=== PATIENT | female | born 1945 | race Caucasian/White ===

== ENCOUNTER 2019-05-24 03:21 | Inpatient (IN) | payer OTHER ==
[~2019-05-24] VITALS: Ht 157.5 cm; Wt 73.0 kg
[2019-05-24] VITALS (23 sets, daily range): BP systolic 83–182
--- NOTE | 2019-05-24 03:23 | NUR ---
ER at bedside examining patient.
--- NOTE | 2019-05-24 03:23 | NUR ---
Placed in room 2 . Placed on equipment monitor phototypesetting, blood pressure machine and pulse oximeter. To gown for exam. Side rails up. Report given to Khoa BARR.
--- NOTE | 2019-05-24 03:38 | NUR ---
# 20 gauge angiocath placed to rt ac. Use of asceptic technique. Opsite placed over site. Blood return noted. Blood for lab drawn from site. Flushed with 10 cc of normal saline. No evidence of infiltration noted. Patient tolerated well.
--- NOTE | 2019-05-24 03:44 | NUR ---
Patient not known to be of DNR status. Patient medicated with 80 mg of ROCURONIUM for sedation prior to placement of ET tube. Respiratory therapy at bedside prior to placement. Size 7.5 ET tube placed by DR MCGRATH. Cuff inflated with 10 cc air. Auscultation of breath sounds over bilateral chest wall. ET tube secured with MIGUEL ANCHOR FAST. O2 sats 99% pulse ox. PCXR ordered to check tube placement.
--- NOTE | 2019-05-24 03:45 | NUR ---
Insertion of OG tube 16 fr, well tolerated. Not connected to suction, Dr. Hussein aware
[2019-05-24] MEDS ORDERED: NACL 0.9% 1,000 ML IV ONE (03:56)
[2019-05-24] MEDS ORDERED: FUROSEMIDE 40 MG/4 ML VIAL IVP ONE (04:00)
[2019-05-24] MEDS ORDERED: NITROGLYCERIN 1 INCH (GM) OINT. TP ONE (04:00)
--- NOTE | 2019-05-24 04:00 | NUR ---
Pt BIBA (ACLS) to ED C/O Respiratory Distress, initial O2 sat at 70 - 80% on 100% non-rebreather mask. Dr. Hussein bedside for immediate Intubation. A/O x 0, pupil slug to react to light. 20 G IV access established R AC. Preparing for OG and Jacques cath insertion. Portable X Ray bedside standing by. RT paged to bedside with vent
[2019-05-24] MEDS ORDERED: ALEN10TA7 PO (04:04)
[2019-05-24] MEDS ORDERED: GLU850 PO (04:04)
[2019-05-24] MEDS ORDERED: GLIP-201 PO (04:04)
[2019-05-24] MEDS ORDERED: MIDO5TAB PO (04:04)
[2019-05-24] MEDS ORDERED: LACTOBACILLUS PO (04:04)
[2019-05-24] MEDS ORDERED: FURO-149 PO (04:04)
[2019-05-24] MEDS ORDERED: GABA-531 PO (04:04)
[2019-05-24] MEDS ORDERED: OMEP20CA11 PO (04:04)
[2019-05-24] MEDS ORDERED: LOVI30 SQ (04:04)
[2019-05-24] MEDS ORDERED: CARV3.1246 PO (04:04)
[2019-05-24] MEDS ORDERED: HYDR-3917 PO (04:04)
[2019-05-24] MEDS ORDERED: LIP20 PO (04:04)
[2019-05-24] MEDS ORDERED: CYM30 PO (04:04)
[2019-05-24] MEDS ORDERED: CIPR-261 PO (04:04)
--- NOTE | 2019-05-24 04:10 | NUR ---
# 16 FR Guardado catheter with use of sterile technique. Immediate return of yellow, cloudy cc 10 ml urine noted. Bedside drainage bag placed below level of bladder. Urine sample collected and sent to lab. Pt tolerated procedure well. Patient arrived with guardado in place, changed due to standard of practice prior to admission. Patient unable to toilet self.
--- NOTE | 2019-05-24 04:13 | NUR ---
Medication reconciliation completed with information provided by NICKY. Any prior medication reconciliation on file was reviewed and corrected.
[2019-05-24] MEDS ORDERED: ROCURONIUM BROMIDE 10 MG/ML (ZEMURON) IV ONE ×2 (04:15→07:53)
[2019-05-24 04:22] LABS: BILIRUBIN,URINE NEGATIVE (NEGATIVE); BLOOD, URINE 1+ (NEGATIVE); CLARITY/URINE CLOUDY (CLEAR); COLOR,URINE YELLOW (YELLOW); GLUCOSE,URINE TRACE (NEGATIVE); KETONES,URINE NEGATIVE (NEGATIVE); LEUKOCYTE ESTERASE ,URINE NEGATIVE (NEGATIVE); NITRITE, URINE NEGATIVE (NEGATIVE); PROTEIN URINE 3+ (NEGATIVE); UROBILINOGEN,URINE 0.2 (0.2-1.0)
[2019-05-24 04:26] LABS: MEAN CORPUSCULAR HEMOGLOBIN 28 pg (27-31); MEAN CORPUSCULAR HGB CONC 31 % (32-36); MEAN CORPUSCULAR VOLUME 89 fL (79.0-98.0); PLATELET COUNT (AUTO) 421 K/uL (130-430); RED BLOOD CELL COUNT(AUTO) 3.61 MIL/uL (4.2-6.2); RED CELL DISTRIBUTION WIDTH 16.7 % (9.0-15.0)
[2019-05-24 04:27] LABS: BACTERIA,URINE MODERATE /HPF (None Seen); WBC,URINE 0-3 /HPF (0-3)
[2019-05-24] MEDS ORDERED: LORazepam 2 MG/ML VIAL IVP ONE (04:30)
[2019-05-24 04:38] LABS: ANION GAP 9 (5-15); CALCIUM 7.6 mg/dL (8.4-11.0); CHLORIDE 107 mmol/L (98-107); GLUCOSE 325 mg/dL (70-99); POTASSIUM 4.6 mmol/L (3.5-5.1); SODIUM SERUM 141 mmol/L (136-145); UREA NITROGEN, BLOOD 28 mg/dL (8-21)
--- NOTE | 2019-05-24 04:39 | NUR ---
RT bedside for ABG draw, well tolerated
[2019-05-24 04:42] LABS: INR 0.9 (0.8-1.2); PROTHROMBIN TIME 9.2 SECS (9.5-12.5)
[2019-05-24 04:44] LABS: ALANINE AMINOTRANSFERASE 29 U/L (12-78); ALBUMIN 2.5 g/dL (3.4-4.8); ASPARTATE AMINOTRANSFERASE 40 U/L (10-37); TOTAL BILIRUBIN 0.3 mg/dL (0.0-1.0)
[2019-05-24 04:45] LABS: ATYPICAL LYMPHOCYTES % 0 % (0-0); BAND % (MANUAL) 0 % (0-6); BASOPHILS % (MANUAL) 1 % (0-2); EOSINOPHILS % (MANUAL) 1 % (0-7); LYMPHOCYTES % (MANUAL) 23 % (20-46); MONOCYTES % (MANUAL) 10 % (0-11)
--- NOTE | 2019-05-24 05:01 | NUR ---
VS: 114/67, 97, 99% on AC 60% Fio2, 18, 450, peep 5, ETT 7.5, 23cm LL
--- NOTE | 2019-05-24 05:04 | NUR ---
Pt afebrile T Max: 98.1
--- NOTE | 2019-05-24 05:08 | NUR ---
Nitro paste DC'd d/t continuing SBP trending down. Dr. Hussein aware
[2019-05-24] MEDS ORDERED: METOCLOPRAMIDE HCL 10 MG/2 ML VIAL IVP PRN (05:30)
--- NOTE | 2019-05-24 05:46 | NUR ---
RT arrived at bedside ready for transfer to ICU 7
--- NOTE | 2019-05-24 06:00 | NUR ---
Patient will be admitted to care of Dr. Hanna. Admitted to ICU unit. Will go to room ICU 7. Belongings list completed. Complete and up to date summary report printed. SBAR report to be given at bedside with opportunity for questions.
--- NOTE | 2019-05-24 06:00 | NUR ---
Transfer to ICU via ACLS protocol. Licensed nurse present. IV present no signs or symptoms of infiltration.
--- NOTE | 2019-05-24 06:00 | NUR ---
ADMISSION NOTE ADMISSION NOTE Received patient from ER via [facility]. Patient admitted with diagnosis of RESPIRATORY FAILURE. VSS, NO S/S OF ACUTE DISTRESS NOTED. PT RECEIVED IN BED WITH EYES CLOSED, UNRESPONSIVE. PT INTUBATED, VENT SETTIGNS: AC 18, TV 450, FIO2 60%, PEEP 5. RAC 20G INFUSING NS @ 100 CC/HR. OGT IN PLACE CLAMPED. KENYON CATH IN PLACE DRAINING YELLOW URINE TO GRAVITY. L HIP INCISION NOTED, DRESSING CDI. BAY PUMP IN PLACE. HOB ELEVATED, BED IN LOWEST POSITION, CALL LIGHT IN REACH. WILL CONTINUE TO MONITOR PT.
--- NOTE | 2019-05-24 06:38 | NUR ---
DR. MIL GASTON PAGED FOR STAT CONSULT AT THIS TIME. PER EXCHANGE DR. ONTIVEROS IS STILL FURNACE COMBINATION ANALYST. WILL AWAIT MD CALL BACK. SPOKE WITH DALTON AT THE EXCHANGE.
--- NOTE | 2019-05-24 06:50 | NUR ---
DR. PETER GASTON AT BEDSIDE TO EVALUATE PT.
[2019-05-24] MEDS ORDERED: ACETAMINOPHEN 325 MG TABLET PO PRN (07:00)
[2019-05-24] MEDS ORDERED: ALBUTEROL SULFATE 0.083% 2.5 MG/3 ML VIAL.NEB INH PRN ×2 (07:00→16:15)
--- NOTE | 2019-05-24 07:00 | NUR ---
Shift report received from night RN using SBAR
[2019-05-24] MEDS ORDERED: DEXTROSE 50%-WATER 50 ML DISP.SYRIN IVP PRN (07:15)
[2019-05-24] MEDS ORDERED: D5W 1,000 ML IV PRN (07:15)
[2019-05-24] MEDS ORDERED: GLUCOSE 15 GM GEL (in 37.5 GM TUBE) PO PRN (07:15)
--- NOTE | 2019-05-24 07:28 | NUR ---
ENDORSEMENT BEDSIDE REPORT GIVEN TO YOUNG RN USING SBAR APPROACH.
--- NOTE | 2019-05-24 08:03 | NUR ---
Restraints place due to patient pulling on NG tube and Ventilator. Will call for orders.
--- NOTE | 2019-05-24 08:15 | NUR ---
Echocardiogram tech bedside.
[2019-05-24 08:23] LABS: BASOPHILS # (AUTO) 0.1 K/uL (0.0-0.2); BASOPHILS % (AUTO) 0.7 % (0.0-2.0); EOSINOPHILS % (AUTO) 0.1 % (0.0-4.0); HEMATOCRIT 29.1 % (36-48); HEMOGLOBIN 9.3 g/dL (12.0-16.0); LYMPHOCYTES # (AUTO) 0.8 K/uL (1.0-5.5); LYMPHOCYTES % (AUTO) 4.9 % (20.5-51.5); MEAN CORPUSCULAR HEMOGLOBIN 28 pg (27-31); MEAN CORPUSCULAR HGB CONC 32 % (32-36); MEAN CORPUSCULAR VOLUME 88 fL (79.0-98.0); MONOCYTES # (AUTO) 1.3 K/uL (0.0-1.0); MONOCYTES % (AUTO) 8.2 % (1.7-9.3); NEUTROPHILS # (AUTO) 13.5 K/uL (1.8-7.7); NEUTROPHILS % (AUTO) 86.1 % (40.0-70.0); PLATELET COUNT (AUTO) 322 K/uL (130-430); RED BLOOD CELL COUNT(AUTO) 3.31 MIL/uL (4.2-6.2); RED CELL DISTRIBUTION WIDTH 16.5 % (9.0-15.0); WHITE BLOOD COUNT (AUTO) 15.7 K/uL (4.8-10.8)
--- NOTE | 2019-05-24 08:30 | NUR ---
Oral Care provided.
--- NOTE | 2019-05-24 08:35 | NUR ---
Radiology bedside for L. hip X-Ray
[2019-05-24 08:42] LABS: INR 0.9 (0.8-1.2); PROTHROMBIN TIME 9.2 SECS (9.5-12.5)
[2019-05-24 08:46] LABS: ALANINE AMINOTRANSFERASE 31 U/L (12-78); ALBUMIN 2.4 g/dL (3.4-4.8); ANION GAP 9 (5-15); ASPARTATE AMINOTRANSFERASE 41 U/L (10-37); CALCIUM 7.7 mg/dL (8.4-11.0); CHLORIDE 107 mmol/L (98-107); CREATININE 1.11 mg/dL (0.55-1.30); GLUCOSE 263 mg/dL (70-99); POTASSIUM 4.6 mmol/L (3.5-5.1); SODIUM SERUM 141 mmol/L (136-145); TOTAL BILIRUBIN 0.3 mg/dL (0.0-1.0); UREA NITROGEN, BLOOD 31 mg/dL (8-21)
--- NOTE | 2019-05-24 08:49 | NUR ---
Critical Value of Troponin 2.872. Informed Dr. Frausto who was bedside. No new orders.
--- NOTE | 2019-05-24 08:55 | NUR ---
MD ROUNDS Dr Hanna bedside. Informed of wrist restraints. Orders received.
[2019-05-24] MEDS ORDERED: ENOXAPARIN SODIUM 30 MG/0.3 ML SYRINGE SQ SCH (09:00)
--- NOTE | 2019-05-24 09:00 | NUR ---
AM ASSESSMENT PT on vent settings AC 19, TV 450, FiO2 60%, PEEP 5. OG-tube in placement, auscultated positive in gastric area and clamped. NS running @ 100 cc/hr changed to 75cc/hr per MD order. Pt on low loss air mattress. No signs of edema. Past posterior scar midline upper back and sacrum area but intact with no redness or signs of irritation. Left hip dressing in place with BAY pump and air tight dressing intact. Noted two draining areas of blood measuring 2 x 2cm in dressing. Bed locked and in lowest position with call light in place.
--- NOTE | 2019-05-24 09:29 | NUR ---
Nutrition Update Jameson Scale 10 noted. Pt admitted for respiratory failure. Diet: NPO BMI: 27.5 kg/m2 RD to follow per nutrition care standards.
[2019-05-24] MEDS: LEVOFLOXACIN 500 MG/D5W 100 ML IV SCH (09:49)
[2019-05-24] MEDS: CARVEDILOL 3.125 MG TABLET (COREG) PO SCH ×2 (09:49→21:04)
[2019-05-24] MEDS: INSULIN LISPRO SLIDING SCALE 100 UNITS/ML VIAL (humaLOG) SUBCUT PRN ×2 (11:14→23:00)
--- NOTE | 2019-05-24 11:21 | NUR ---
PICC LINE Nurse Bedside
--- NOTE | 2019-05-24 12:30 | NUR ---
Sister Nasima kelton. Informed of past medical history
--- NOTE | 2019-05-24 13:00 | NUR ---
Pt able to communicate with pen and paper. Pt restraints removed while family is bedside and reapplied after. Pt is aware and indicated she is okay with restraints for care.
--- NOTE | 2019-05-24 14:26 | NUR ---
Paged Dr. Hanna for orders, spoke with exchange.
[2019-05-24] MEDS ORDERED: LORazepam 2 MG/ML VIAL IVP PRN (14:30)
--- NOTE | 2019-05-24 15:00 | NUR ---
Dr Hanna called back. Informed him that Duong (Wound nurse) would like to see the incision site but Dr Hanna stated not to open the BAY dressing.
--- NOTE | 2019-05-24 15:09 | NUR ---
Wound Evaluation: Wound Consult ordered for Low Jameson Score. Patient evaluated for a low Jameson score of 10. Patient was awake, alert, oriented, non-verbal (mouths words) and [facility] with [facility] IsoFlex ANALY mattress with low air loss therapy initiated. Patient needs assist to turn in bed. Recommend reposition patient side to side only every 2 hours with pillow wedge pelvic tilt. Elevate, off-load and float bilateral heels with one pillow lengthwise under each extremity at all times. Offload pressure areas with pillows for pressure re-distribution. Perform skin care and monitor skin integrity Q shift. Use moisture barrier cream on moisture susceptible areas QID and PRN for soiling. Maintain patient on a low air-loss mattress. Skin assessment: 1. Left lateral hip: Recent surgical site (per sisters of patient), present on admission. Site has a Jennifer 7 wound VAC for incision closure. Recommend: Leave Jennifer wound VAC in place per orders by Dr. Hanna. May remove wound VAC and consult wound resident caregiver: Wound VAC batteries (or 7 days, whichever comes first). Do not place patient on hip at any time. 2. Left upper extremity: Multiple areas of ecchymosis, present on admission. 3. Right upper extremity: Multiple areas of ecchymosis, present on admission. Recommend: No dressings needed. Continue to monitor sites every shift.
--- NOTE | 2019-05-24 15:30 | NUR ---
Tran called from [facility] for status update.
[2019-05-24] MEDS: MORPHINE 2 MG/ML INJ. SYRINGE IVP PRN ×3 (15:49→22:39)
[2019-05-24] MEDS ORDERED: IPRATROPIUM BROM 0.5 MG/2.5 ML VIAL.NEB (ATROVENT) INH PRN (16:15)
[2019-05-24] MEDS ORDERED: ENOXAPARIN SODIUM 40 MG/0.4 ML SYRINGE SUBCUT ONE (16:15)
--- NOTE | 2019-05-24 16:30 | NUR ---
Called [facility] to see when the last dose of medication was given for metformin per Dasha. Was informed the pt did not receive any medication while in their care. Called [facility] to and left message for warehouse checker to see when the patient received metformin last per contraindication for CT with contrast. Waiting for callback. Consent signed for CT w/contrast. Informed Radha @ radiology.
[2019-05-24] MEDS ORDERED: IOHEXOL 350 mgI/mL, 150 ML INFUS..BTL IV ONE (16:36)
--- NOTE | 2019-05-24 16:48 | NUR ---
1614 TITRATED FIO2 TO 40%. PT TOLERATING. SAT 100%. Addendum: 05/24/19 at 1649 by Nuha Galarza RT Amended: Links added.
--- NOTE | 2019-05-24 17:40 | NUR ---
One time order of Lovenox order received for 40mg but pt had prior dose of 30mg @ 0950. Called Bong at pharmacy and he stated it was okay to give.
[2019-05-24] MEDS: NACL 0.9% 1,000 ML IV SCH (17:42)
--- NOTE | 2019-05-24 18:00 | NUR ---
Pt complaining of being hot. Removed all covers except one sheet. Temp of 98.6F noted.
[2019-05-24] MEDS: methylPREDNISolone SOD SUCC/PF 62.5 MG/ML VIAL IVP SCH (18:21)
--- NOTE | 2019-05-24 19:19 | NUR ---
Endorsement to Sotero BARR given using SBAR. PT resting and watching tv. No signs of distress A/O x 3. Bedlocked and in lowest position with call light in place. Sotero BARR bedside.
--- NOTE | 2019-05-24 20:00 | NUR ---
AWAKE, ALERT, DISORIENTED TO TIME AND PLACE. REORIENTED. ORALLY INTUBATED. SUCTIONED ETT WITH SCANT AMOUNT OF THIN CLEAR MUCUS OBTAINED. ORAL CARE GIVEN. OGT CLAMPED. SACHI SOFT WRIST RESTRAINTS ON FOR SAFETY. COMMUNICATES BY WRITING . KENYON CATH PATENT DRAINING CLEAR YELLOW URINE TO GRAVITY. SR. LEFT HIP DRSG D/I, BAY PUMP IN PLACE.
[2019-05-24] MEDS: ALBUTEROL SULFATE 0.083% 2.5 MG/3 ML VIAL.NEB INH SCH (20:01)
[2019-05-24] MEDS: IPRATROPIUM BROM 0.5 MG/2.5 ML VIAL.NEB (ATROVENT) INH SCH (20:01)
--- NOTE | 2019-05-24 20:30 | NUR ---
SISTERS VISITING. RESTRAINTS OFF AT THIS TIME. ABLE TO COMMUNICATE BY WRITING.
--- NOTE | 2019-05-24 21:00 | NUR ---
MORPHINE 2 MG IVP GIVEN PER PT REQUEST FOR C/O RIGHT SHOULDER PAIN.
--- NOTE | 2019-05-24 21:30 | NUR ---
PER WOUND TREATMENT ORDERS, PT IS NOT TO BE TURNED ON LEFT HIP AT ANYTIME, SO TURNING Q2 HRS IS RIGHT SIDE AND SUPINE ONLY.
--- NOTE | 2019-05-24 22:00 | NUR ---
PT ALERT, MADE PACT NOT TO PULL ON ANYTHING. SEEMS TO COMPREHEND. RESTRAINTS NOT REAPPLIED. DISCONTINUED EARLIER AT 2029.
--- NOTE | 2019-05-24 22:40 | NUR ---
MORPHINE 2 MG IVP GIVEN FOR C/O GENERAL DISCOMFORT, RIGHT SHOULDER PAIN, LEFT HIP PAIN , AND THROAT PAIN.
--- NOTE | 2019-05-24 23:00 | NUR ---
ACCU-CHEK 155, 2 UNITS NOVOLOG INSULIN SQ GIVEN PER SLIDING SCALE COV.
[2019-05-25] VITALS (37 sets, daily range): BP systolic 100–179
--- NOTE | 2019-05-25 | NUR ---
SISTER LEFT FOR HOME EARLIER. PT ASLEEP. SUCTIONED, TURNED. MORPHINE 2 MG IVP GIVEN FOR GEN DISCOMFORT.
[2019-05-25] MEDS: MORPHINE 2 MG/ML INJ. SYRINGE IVP PRN ×6 (00:07→12:50)
[2019-05-25] MEDS: IPRATROPIUM BROM 0.5 MG/2.5 ML VIAL.NEB (ATROVENT) INH SCH ×4 (01:01→20:11)
[2019-05-25] MEDS: ALBUTEROL SULFATE 0.083% 2.5 MG/3 ML VIAL.NEB INH SCH ×4 (01:01→20:16)
--- NOTE | 2019-05-25 03:00 | NUR ---
ACCU-CHEK 148, NO INSULIN DUE PER SLIDING SCALE COV.
[2019-05-25] MEDS: INSULIN LISPRO SLIDING SCALE 100 UNITS/ML VIAL (humaLOG) SUBCUT PRN ×5 (03:16→21:52)
[2019-05-25 05:34] LABS: BASOPHILS % (AUTO) 0.3 % (0.0-2.0); HEMATOCRIT 23.4 % (36-48); HEMOGLOBIN 7.7 g/dL (12.0-16.0); LYMPHOCYTES % (AUTO) 11.5 % (20.5-51.5); MEAN CORPUSCULAR HEMOGLOBIN 29 pg (27-31); MEAN CORPUSCULAR HGB CONC 33 % (32-36); MEAN CORPUSCULAR VOLUME 87 fL (79.0-98.0); MONOCYTES # (AUTO) 0.5 K/uL (0.0-1.0); MONOCYTES % (AUTO) 6.1 % (1.7-9.3); NEUTROPHILS # (AUTO) 6.9 K/uL (1.8-7.7); NEUTROPHILS % (AUTO) 82.1 % (40.0-70.0); PLATELET COUNT (AUTO) 232 K/uL (130-430); RED BLOOD CELL COUNT(AUTO) 2.68 MIL/uL (4.2-6.2); RED CELL DISTRIBUTION WIDTH 16.3 % (9.0-15.0); WHITE BLOOD COUNT (AUTO) 8.5 K/uL (4.8-10.8)
[2019-05-25] MEDS: NACL 0.9% 1,000 ML IV SCH ×2 (05:51→21:55)
--- NOTE | 2019-05-25 06:00 | NUR ---
SLEPT FOR LONG PERIODS OF TIME. MORPHINE 2 MG GIVEN FOR C/O GENERAL DISCOMFORT. UO GOOD. ORAL CAR GIVEN. TURNED Q2 HRS. REMAINS IN GUARDED CONDITION.
[2019-05-25 06:03] LABS: ALANINE AMINOTRANSFERASE 22 U/L (12-78); ANION GAP 10 (5-15); ASPARTATE AMINOTRANSFERASE 21 U/L (10-37); CALCIUM 7.4 mg/dL (8.4-11.0); CHLORIDE 110 mmol/L (98-107); CREATININE 0.85 mg/dL (0.55-1.30); GLUCOSE 153 mg/dL (70-99); POTASSIUM 4.8 mmol/L (3.5-5.1); SODIUM SERUM 143 mmol/L (136-145); THYROID STIMULATING HORMONE 0.96 uIu/mL (0.36-3.74); TOTAL BILIRUBIN 0.4 mg/dL (0.0-1.0); UREA NITROGEN, BLOOD 28 mg/dL (8-21)
[2019-05-25] MEDS: methylPREDNISolone SOD SUCC/PF 62.5 MG/ML VIAL IVP SCH ×2 (06:35→21:40)
--- NOTE | 2019-05-25 07:05 | NUR ---
Shift report from night RN using SBAR.
[2019-05-25 07:18] LABS: CHOLESTEROL 95 mg/dL (<200); HDL CHOLESTEROL 45 mg/dL (>55); LDL CHOLESTEROL 36 mg/dL (<100); TRIGLYCERIDES 66 mg/dL (30-150)
[2019-05-25] MEDS: LEVOFLOXACIN 500 MG/D5W 100 ML IV SCH (08:10)
[2019-05-25] MEDS: ENOXAPARIN SODIUM 40 MG/0.4 ML SYRINGE SUBCUT SCH (08:11)
[2019-05-25] MEDS: CARVEDILOL 3.125 MG TABLET (COREG) PO SCH ×2 (08:12→21:40)
--- NOTE | 2019-05-25 08:15 | NUR ---
AM ASSESSMENT Pt complaining of leg and shoulder pain. Pt able to communicate with paper and pen. Vent setting AC 18, FiO2 40, TV 450, PEEP 5. Restraints removed. Yellow urine noted in Jacques. No other complications noted. Bed locked and in lowest position with call light in place.
--- NOTE | 2019-05-25 08:15 | NUR ---
Oral care provided. Pt tolerated well.
--- NOTE | 2019-05-25 08:30 | NUR ---
MD ROUNDS Dr Hanna bedside. Ask for orders to check hip incision and feedings. He stated to do nothing and ask Dr. Her.
[2019-05-25] MEDS ORDERED: IOHEXOL 350 mgI/mL, 150 ML INFUS..BTL IV ONE (10:15)
--- NOTE | 2019-05-25 10:30 | NUR ---
CT Transferred pt to radiology and returned. Uneventful. Pt tolerated contrast well with no reaction. Will continue to monitor.
--- NOTE | 2019-05-25 11:00 | NUR ---
Pain Pt complaining of pain. Will administer prn medication.
--- NOTE | 2019-05-25 12:30 | NUR ---
Oral care provided. Pt tolerated well.
--- NOTE | 2019-05-25 12:50 | NUR ---
PAIN. PT'S SISTER ASKED FOR PAIN MEDS, PT POINTING TO HER ARM, USING HER HAND A LIKE A GUN, PAIN TO THE SHOULDER AND HER HIP, MEDICATED PT WITH MORPHINE 2 MG IVP, SCALE 8/10.
--- NOTE | 2019-05-25 13:09 | NUR ---
social worker school; [facility] met with pt who was intubated and her sister Mile who assisted with the questions/interview. Pt. also participated via paper and pen for writing down responses. Pt wants to return to her home [address] [place] [address] [place] [id number] Pt. will text a nearby friend daily/a.m. that she is up and doing ok. Sisters will call her and ensure she is doing ok when they cannot visit because they live far from her. When [employer] asked pt. if she had ever been Dx. with any Depression, Anxiety etc. Pt. began to get teary eyed and said she was depressed and anxious and has felt this way since she began getting sick and hospitalized. PT. denied feeling suicidal. [employer] will share this info with Ailyn Hagan. Pt. stated she was going to be extubated today and was happy about that as she is very uncomfortable. [employer] will remain available as needed. Addendum: 05/25/19 at 1513 by Estefany López [employer] social worker school: follow up [employer] met with Ailyn Hagan re pt. and her feelings of depression and anxiety. Rn stated pt. is probably feeling anxious because she has not smoked and feeling depressed since her . He stated he would mention it to Dr. Her. ASSEMBLER [employer] saw Dr. Her re another pt. to ensure she is aware of pts. condition. Dr. Her made a note of this.
--- NOTE | 2019-05-25 14:00 | NUR ---
Mirian (social and human services assistant) for [facility] bedside.
--- NOTE | 2019-05-25 14:25 | NUR ---
Jennifer Wound VAC update: Spoke with Oliver (piano case and bench assembler) at [facility]. She said that the Jennifer was placed on the patient on 05/22/2019. She said that the surgeon at [facility] (Dr. Ismael Jones) said to leave the Jennifer on for two weeks, and to remove the controller on 06/09/2019, and to remove the Jennifer dressing on 06/05/2019. Spoke with Dr. Hanna, who gave orders to coincide with the above. Addendum: 05/25/19 at 1436 by Duong Guidry RN Error, should say: Remove the Jennifer controller on 05/29/2019 Addendum: 05/28/19 at 1041 by Duong Guidry RN Error, the controller should be removed on 05/30/2019.
--- NOTE | 2019-05-25 15:15 | NUR ---
MD ROUNDS Dr Her Bedside. Orders received for tube feeding, pain medication, and sleep aid for HS.
--- NOTE | 2019-05-25 15:37 | NUR ---
Dietitian Recommendations * Consider advance diet if/when medically appropriate * Consider diabetic and heart-health diet upon diet advancement LP, RD Please refer to Nutrition Assessment for details. Addendum: 05/25/19 at [address] Amended: Links added.
--- NOTE | 2019-05-25 16:00 | NUR ---
CHG Bath Pt tolerated well. Changed bedding, gown. PT refused oral care.
[2019-05-25] MEDS: MORPHINE 4 MG/ML INJ. SYRINGE IVP PRN ×3 (16:48→21:53)
--- NOTE | 2019-05-25 17:19 | NUR ---
Noted Nicotine Patch on Right upper scapula. Will remove per pharmacy as patch is good for 24hrs only.
[2019-05-25] MEDS ORDERED: methylPREDNISolone SOD SUCC/PF 62.5 MG/ML VIAL IVP SCH (17:23)
--- NOTE | 2019-05-25 18:00 | NUR ---
Pt family bedside. Pt is alert with head of bed @ 35 degrees. Saturating @ 95%. No complaints of pain after administering prn pain medication.
--- NOTE | 2019-05-25 19:15 | NUR ---
Endorsement given to Sotero RN using SBAR. Pt awake and is complaining of leg and shoulder pain. Informed night RN for PRN pain medication. Bed locked and in lowest position with call light in place. Nasima (Sister) of pt insistent that I be the nurse again tomorrow.
--- NOTE | 2019-05-25 19:31 | NUR ---
MORPHINE 4 MG IVP GIVEN FOR COMPLAIN OF RIGHT SHOULDER PAIN, THROAT PAIN, LEFT HIP PAIN AND GENERAL DISCOMFORT.
--- NOTE | 2019-05-25 20:00 | NUR ---
ALERT. COMPLIANT . ORALLY INTUBATED. SUCTIONED WITH SCANT AMOUNT OF THIN CLEAR MUCUS OBTAINED. ORAL CARE GIVEN. OGT FEEDING WITH GLUCERNA 1.5 AT 20CC/HR. RESIDUAL CHECK 0. KENYON CATH PATENT DRAINING CLEAR TATIANA URINE TO GRAVITY. SR. SACHI SCD'S IN PLACE. JAI PICC LINE ARGENIS D/I. SISTER HOANG AT BEDSIDE VISITING.
--- NOTE | 2019-05-25 22:00 | NUR ---
MORPHINE 4 MG IVP GIVEN FOR GEN DISCOMFORT EARLIER. SISTER LEFT FOR HOME EARLIER. ACCU-CHEK 151, 2 UNITS NOVOLOG INSULIN SQ GIVEN PER SLIDING SCALE COV. LEFT HIP DRSG D/I. BAY PUMP IN PLACE.
[2019-05-26] VITALS (36 sets, daily range): BP systolic 136–202
--- NOTE | 2019-05-26 | NUR ---
DOZES ON AND OFF. SUCTIONED WITH SAME RESULTS. TURNED. ORAL CARE GIVEN. RESIDUAL CHECK 0. OGT FLUSHED [id number] H2O.
[2019-05-26] MEDS: MORPHINE 4 MG/ML INJ. SYRINGE IVP PRN ×7 (01:18→21:25)
--- NOTE | 2019-05-26 01:18 | NUR ---
MORPHINE 4 MG IVP GIVEN FOR C/O GENERALIZED PAIN.
--- NOTE | 2019-05-26 02:00 | NUR ---
ACCU-CHEK 171, 2 UNITS NOVOLOG INSULIN SQ GIVEN PER SLIDING SCALE COV. SUCTIONED. TURNED.
[2019-05-26] MEDS: INSULIN LISPRO SLIDING SCALE 100 UNITS/ML VIAL (humaLOG) SUBCUT PRN ×6 (02:03→22:00)
[2019-05-26] MEDS: IPRATROPIUM BROM 0.5 MG/2.5 ML VIAL.NEB (ATROVENT) INH SCH ×4 (02:23→20:41)
[2019-05-26] MEDS: ALBUTEROL SULFATE 0.083% 2.5 MG/3 ML VIAL.NEB INH SCH ×4 (02:23→20:40)
--- NOTE | 2019-05-26 04:00 | NUR ---
SLEPT FOR LONG PERIODS OF TIME. MORPHINE 2 MG IVP GIVEN FOR C/O GENERALIZED PAIN. SUCTIONED. ORAL CARE GIVEN. RESIDUAL CHECK 0.
--- NOTE | 2019-05-26 06:00 | NUR ---
SLEPT INTERMITTENTLY. ACCU-CHECK 222, 4 UNITS NOVOLOG INSULIN SQ GIVEN PER SLIDING SCALE COV. MORPHINE 4 MG IVP GIVEN FOR GENERAL DISCOMFORT. OGT FLUSHED WITH 100CC H2O. UO GOOD. REMAINS IN GUARDED CONDITION.
--- NOTE | 2019-05-26 07:20 | NUR ---
Shift report received from Sotero using SBAR.
--- NOTE | 2019-05-26 08:00 | NUR ---
MD ROUNDS Dr Jett melara. Informed of current condition.
[2019-05-26 08:06] LABS: HEMOGLOBIN 9.4 g/dL (12.0-16.0); MEAN CORPUSCULAR HEMOGLOBIN 28 pg (27-31); MEAN CORPUSCULAR HGB CONC 32 % (32-36); MEAN CORPUSCULAR VOLUME 87 fL (79.0-98.0); PLATELET COUNT (AUTO) 341 K/uL (130-430); RED BLOOD CELL COUNT(AUTO) 3.35 MIL/uL (4.2-6.2); RED CELL DISTRIBUTION WIDTH 16.5 % (9.0-15.0); WHITE BLOOD COUNT (AUTO) 15.5 K/uL (4.8-10.8)
--- NOTE | 2019-05-26 08:30 | NUR ---
AM ASSESSMENT Pt resting with no signs of distress. Pt indicated with head signal that she has no pain. Bilateral upper and lower pulses present and normal. Upper lobes of lungs clear with lower right and left diminished. SIMV 8, TV 450, Fi02 40%, PEEP 5, PS 10. Lip line of 23. Pt refused oral care. Elevated BP noted 202/95. Will contact primary for orders. Bed locked and in lowest position with call light in place.
--- NOTE | 2019-05-26 08:30 | NUR ---
MD ROUNDS Dr Diallo bedside. Informed of pt condition and HTN. Orders received.
[2019-05-26 08:46] LABS: ATYPICAL LYMPHOCYTES % 0 % (0-0); BAND % (MANUAL) 0 % (0-6); BASOPHILS % (MANUAL) 0 % (0-2); EOSINOPHILS % (MANUAL) 0 % (0-7); LYMPHOCYTES % (MANUAL) 14 % (20-46); MONOCYTES % (MANUAL) 3 % (0-11)
[2019-05-26] MEDS: LEVOFLOXACIN 500 MG/D5W 100 ML IV SCH (08:55)
[2019-05-26] MEDS: methylPREDNISolone SOD SUCC/PF 62.5 MG/ML VIAL IVP SCH ×2 (08:55→21:26)
[2019-05-26] MEDS: ENOXAPARIN SODIUM 40 MG/0.4 ML SYRINGE SUBCUT SCH (08:56)
[2019-05-26] MEDS ORDERED: amLODIPine BESYLATE 10 MG TABLET NG SCH (09:00)
[2019-05-26] MEDS ORDERED: amLODIPine BESYLATE 5 MG TABLET PO SCH (09:00)
[2019-05-26] MEDS ORDERED: FUROSEMIDE 40 MG/4 ML VIAL IVP ONE (09:00)
[2019-05-26] MEDS: CARVEDILOL 6.25 MG TABLET (COREG) PO SCH ×2 (09:02→21:22)
[2019-05-26] MEDS: amLODIPine BESYLATE 10 MG TABLET NG SCH (09:30)
[2019-05-26 09:42] LABS: ALANINE AMINOTRANSFERASE 25 U/L (12-78); ALBUMIN 2.4 g/dL (3.4-4.8); ANION GAP 10 (5-15); ASPARTATE AMINOTRANSFERASE 22 U/L (10-37); CALCIUM 8.3 mg/dL (8.4-11.0); CHLORIDE 109 mmol/L (98-107); CREATININE 0.71 mg/dL (0.55-1.30); GLUCOSE 221 mg/dL (70-99); POTASSIUM 4.7 mmol/L (3.5-5.1); SODIUM SERUM 141 mmol/L (136-145); TOTAL BILIRUBIN 0.2 mg/dL (0.0-1.0); UREA NITROGEN, BLOOD 30 mg/dL (8-21)
--- NOTE | 2019-05-26 10:00 | NUR ---
RT NOTES Vent settings to CPAP [address] Devi's order. No adverse reactions noted. Will monitor pt.
--- NOTE | 2019-05-26 10:00 | NUR ---
Patient indicated she is 3/10 on pain scale. Does not want pain medication.
--- NOTE | 2019-05-26 12:00 | NUR ---
Pt refused oral care.
[2019-05-26] MEDS: NACL 0.9% 1,000 ML IV SCH (12:34)
[2019-05-26] MEDS: ENALAPRILAT DIHYDRATE 1.25 MG/ML VIAL IVP PRN ×2 (13:57→21:24)
--- NOTE | 2019-05-26 15:45 | NUR ---
PRN pain medication provided 01/25.
--- NOTE | 2019-05-26 16:00 | NUR ---
CHG Bath provided. Changed linens and washed hair. Pt tolerated well. Pain 4/10.
--- NOTE | 2019-05-26 16:00 | NUR ---
Pt refused oral care. Educated pt on the importance of oral care for intubated Pt. Pt acknowledge by head maría elena.
--- NOTE | 2019-05-26 18:30 | NUR ---
DPOA Pt sister's and other friends of pt bedside to sign durable power of shank archer. Copy received and placed in PT chart.
--- NOTE | 2019-05-26 19:19 | NUR ---
Endorsement given to Sotero BARR using SBAR. Pt sleeping with no signs of distress. PRN pain medication effective. Bed locked and in lowest position with call light in place.
--- NOTE | 2019-05-26 20:00 | NUR ---
ORALLY INTUBATED. SUCTIONED WITH SMALL AMOUNT OF CLEAR MUCUS OBTAINED. ORAL CARE GIVEN. OGT FEEDING WITH GLUCERNA 1.5 AT 20CC/HR. RESIDUAL CHECK 0. KENYON CATH PATENT DRAINING CLEAR YELLOW URINE TO GRAVITY. SR.
[2019-05-26] MEDS: MELATONIN 3 MG TABLET PO PRN (21:21)
--- NOTE | 2019-05-26 22:00 | NUR ---
MORPHINE 4 MG IVP GIVEN EARLIER FOR C/O PAIN IN RIGHT SHOULDER, LEFT HIP AND THROAT. VASOTEC 1.25 MG OGT GIVEN EARLIER FOR SBP> 160. MELATONIN 3 MG OGT GIVEN FOR SLEEP EARLIER. ACCU-CHEK 214, 4 UNITS NOVOLOG INSULIN SQ GIVEN PER SLIDING SCALE COV. HS CARE RENDERED.
[2019-05-27] VITALS (29 sets, daily range): BP systolic 135–187
--- NOTE | 2019-05-27 | NUR ---
SUCTIONED. TURNED. ORAL CARE GIVEN. RESIDUAL CHECK 0. OGT FLUSHED WITH 100CC H2O. VSS.
[2019-05-27] MEDS: IPRATROPIUM BROM 0.5 MG/2.5 ML VIAL.NEB (ATROVENT) INH SCH ×4 (01:33→19:42)
[2019-05-27] MEDS: ALBUTEROL SULFATE 0.083% 2.5 MG/3 ML VIAL.NEB INH SCH ×4 (01:33→19:42)
--- NOTE | 2019-05-27 02:00 | NUR ---
SUCTIONED AGAIN WITH SAME RESULTS. ACCU-CHEK 213, 4 UNITS NOVOLOG INSULIN SQ GIVEN PER SLIDING SCALE COV.
[2019-05-27] MEDS: NACL 0.9% 1,000 ML IV SCH ×2 (02:03→14:20)
[2019-05-27] MEDS: INSULIN LISPRO SLIDING SCALE 100 UNITS/ML VIAL (humaLOG) SUBCUT PRN ×6 (02:10→21:29)
--- NOTE | 2019-05-27 04:00 | NUR ---
SLEPT FOR LONG PERIODS OF TIME. ORAL CARE DONE. RESIDUAL CHECK 0. REPOSITIONED.
[2019-05-27] MEDS: ENALAPRILAT DIHYDRATE 1.25 MG/ML VIAL IVP PRN ×3 (04:45→20:05)
[2019-05-27] MEDS: MORPHINE 4 MG/ML INJ. SYRINGE IVP PRN ×5 (04:48→20:06)
--- NOTE | 2019-05-27 04:48 | NUR ---
VASOTEC 1.25 MG GIVEN FOR BP 156/67.
[2019-05-27 06:38] LABS: BASOPHILS % (AUTO) 0.1 % (0.0-2.0); EOSINOPHILS % (AUTO) 0.1 % (0.0-4.0); HEMATOCRIT 30.8 % (36-48); HEMOGLOBIN 9.8 g/dL (12.0-16.0); LYMPHOCYTES # (AUTO) 0.8 K/uL (1.0-5.5); LYMPHOCYTES % (AUTO) 6.8 % (20.5-51.5); MEAN CORPUSCULAR HEMOGLOBIN 28 pg (27-31); MEAN CORPUSCULAR HGB CONC 32 % (32-36); MEAN CORPUSCULAR VOLUME 87 fL (79.0-98.0); MONOCYTES # (AUTO) 0.7 K/uL (0.0-1.0); MONOCYTES % (AUTO) 5.6 % (1.7-9.3); NEUTROPHILS # (AUTO) 10.7 K/uL (1.8-7.7); NEUTROPHILS % (AUTO) 87.4 % (40.0-70.0); PLATELET COUNT (AUTO) 325 K/uL (130-430); RED BLOOD CELL COUNT(AUTO) 3.56 MIL/uL (4.2-6.2); RED CELL DISTRIBUTION WIDTH 16.5 % (9.0-15.0); WHITE BLOOD COUNT (AUTO) 12.3 K/uL (4.8-10.8)
[2019-05-27 06:44] LABS: ALANINE AMINOTRANSFERASE 23 U/L (12-78); ALBUMIN 2.3 g/dL (3.4-4.8); ANION GAP 11 (5-15); ASPARTATE AMINOTRANSFERASE 13 U/L (10-37); CALCIUM 8.1 mg/dL (8.4-11.0); CHLORIDE 108 mmol/L (98-107); CREATININE 0.73 mg/dL (0.55-1.30); GLUCOSE 230 mg/dL (70-99); POTASSIUM 4.2 mmol/L (3.5-5.1); SODIUM SERUM 142 mmol/L (136-145); TOTAL BILIRUBIN 0.3 mg/dL (0.0-1.0); UREA NITROGEN, BLOOD 33 mg/dL (8-21)
--- NOTE | 2019-05-27 07:25 | NUR ---
RECEIVED NURSING REPORT FROM SENIOR ACCOUNTING SPECIALISTMELVIN STEWARD R.N
[2019-05-27] MEDS: methylPREDNISolone SOD SUCC/PF 62.5 MG/ML VIAL IVP SCH ×2 (08:49→21:25)
[2019-05-27] MEDS: amLODIPine BESYLATE 10 MG TABLET NG SCH (08:50)
[2019-05-27] MEDS: CARVEDILOL 6.25 MG TABLET (COREG) PO SCH ×2 (08:50→21:27)
[2019-05-27] MEDS: ENOXAPARIN SODIUM 40 MG/0.4 ML SYRINGE SUBCUT SCH (08:51)
[2019-05-27] MEDS: LEVOFLOXACIN 500 MG/D5W 100 ML IV SCH (08:51)
--- NOTE | 2019-05-27 08:55 | NUR ---
Nutrition F/U RD reviewed pt's current EMR including diet Hx, physician notes, nursing notes, pertinent labs/meds/procedures, care trends and care activity. Current Nutrition Support: Glucerna 1.5 at 20ml/hr, FWF 100ml Q6H via OGT x 2 days Subjective information: Pt seen in bed, intubated, EN infusing per MD orders. Per RN report, no residual reported since last night and pt has been tolerating EN regimen. Per MD notes, S/P recent L hip Surgery. Current EN regimen provides: 720 kcal, 40 gm protein and 764ml free water daily which meets <60% of estimated calorie and protein needs. Pt may benefit from increasing EN infusion rate to meet estimated needs. RN notified of RD rec. RD noted BG trending between 210-230mg/dL. Current PO intake: N/A on EN. Estimated Energy Expenditure (kcals/day) 1242 kcal/day (RMR = [id number] d/t critical illness, intubated on vent) Estimated Protein Required (g/day) 77-118 gm/day (1.3-2 gm/kg Adj IBW for acute state) Estimated Fluid Required (l/day) Per physician d/t CHF Problem/Etiology/Signs/Symptoms Increased nutritional needs related to metabolic demands as evidenced by estimated nutritional requirements for acute state. (*ongoing) Inadequate EN intake r/t current EN infusion AEB EN intake meeting <60% of est needs. (*new) Expected Outcomes/Goals - Monitor EN tolerance and intake w/ goal of pt meeting at least 50% of estimated nutritional needs, labs trending WNL, normal GI function, and skin integrity/wt maintenance Dietitian Recommendations * Recommend: Glucerna 1.5 at 35ml/hr (goal rate), FWF 100ml Q6H via OGT Provides: 1260 kcal, 69 gm protein and 1037ml free water daily. Meets: 101% of estimated calorie needs and 90% of lower end of estimated protein needs. Follow Up High Risk: F/U in 2-3days
--- NOTE | 2019-05-27 09:03 | NUR ---
Dietitian Recommendations * Recommend: Glucerna 1.5 at 35ml/hr (goal rate), FWF 100ml Q6H via OGT Provides: 1260 kcal, 69 gm protein and 1037ml free water daily. Meets: 101% of estimated calorie needs and 90% of lower end of estimated protein needs. Please see Nutrition F/U note. KINGSLEY, RD
--- NOTE | 2019-05-27 09:30 | NUR ---
SEE PATIENT, ORDERED FOLLOW UP CBC CMP IN A.M
--- NOTE | 2019-05-27 09:40 | NUR ---
SEE PATIENT, ORDERED ON O2 T-PIECE 10 L /FIO2 40% VIA E-T TUBE FOR WEANING, AFTER 30 MINUTES FOLLOW UP STAT ABG
--- NOTE | 2019-05-27 09:45 | NUR ---
RT NOTES Per dr Devi's order, pt off the vent and to 10L 40% tbar to ETT. Pt. appears to understand education given. No adverse reactions noted. @3265 pt was re-assessed. no signs of distress noted. Pt. is alert, denies SOB.
--- NOTE | 2019-05-27 10:50 | NUR ---
RT NOTES Pt extubated and placed on 5L oxymizer per Dr Devi's order. No adverse reactions noted. No distress noted. Pt denies SOB. Will monitor pt.
--- NOTE | 2019-05-27 10:50 | NUR ---
ABG RESULT IS O.K, ORDERED EXTUBATED AT 1050 A.M WITH BARB Alejandra ,KEEP OG-TUBE FOR FEEDING, PATIENT IS ALERT, ORIENTED ABLE TO FOLLOW UP SIMPLE COMMAND , ON OXYMIZER 5 LPM / FIO2 46%,ENCOURAGE DEEP BREATH, KEEP CLOSE MONITOR
--- NOTE | 2019-05-27 14:00 | NUR ---
PATIENT IS ALERT,AWAKE, PULLED OUT OG -TUBE BY HERSELF,WAS GIVE SMALL AMOUNT, ICE CHIP, APPLE SOURCE, SWALLOW IS SLOW BUT NO S/S OF Audelia BRADFORD , RAILS UP, KEEP CLOSE MONITOR Addendum: 05/27/19 at 1453 by Hayes Jones RN CHOKING
--- NOTE | 2019-05-27 14:51 | NUR ---
PATIENT IS ALERT,AWAKE, PULLED OUT OG -TUBE BY HERSELF,WAS GIVE SMALL AMOUNT, ICE CHIP, APPLE SOURCE, SWALLOW IS SLOW BUT NO S/S OF CHOKING, B.S 226 , RAILS UP, KEEP CLOSE MONITOR
[2019-05-27] MEDS: ONDANSETRON HCL 4 MG/2 ML VIAL IVP PRN (15:25)
--- NOTE | 2019-05-27 19:04 | NUR ---
GIVE COMPLETE NURSING REPORT TO COMMERCIAL RELIEF DRIVERMELVIN STEWARD R.N
--- NOTE | 2019-05-27 20:00 | NUR ---
AWAKE, ALERT, ORIENTED X4. IN NO APPARENT DISTRESS. VSS. DENIES ACUTE PAIN. ON O2 AT 5L/OXYMIZER. POX 97%. BREATH SOUNDS ESSENTIALLY CLEAR. BOWEL SOUNDS (+). PULSES PALPABLE. SKIN W/D. COLOR SATISFACTORY. HOB UP TO COMFORT. SIDE RAILS UP. CALL LIGHTS WITHIN REACH. KENYON CATH PATENT DRAINING CLOUDY TATIANA URINE TO GRAVITY. JAI PICC LINE DRSG D/I. SCD'S IN PLACE. LEFT HIP DRSG D/I, PICP PUMP IN PLACE. VASOTEC 1.25 MG IVP GIVEN FOR BP 187/89, AND MS 4 MG IVP GIVEN FOR GENERALIZED DISCOMFORT.
--- NOTE | 2019-05-27 22:00 | NUR ---
DOZES ON AND OFF. HS CARE RENDERED. REPOSITIONED. ACCU-CHEK 264, 6 UNITS NOVOLOG INSULIN SQ GIVEN PER SLIDING SCALE COV.
[2019-05-28] VITALS (16 sets, daily range): BP systolic 117–172
--- NOTE | 2019-05-28 | NUR ---
SOUNDLY ASLEEP. NO DISTRESS NOTED. VITAL SIGNS STABLE.
[2019-05-28] MEDS: ALBUTEROL SULFATE 0.083% 2.5 MG/3 ML VIAL.NEB INH SCH ×4 (01:43→20:25)
[2019-05-28] MEDS: IPRATROPIUM BROM 0.5 MG/2.5 ML VIAL.NEB (ATROVENT) INH SCH ×4 (01:44→20:25)
--- NOTE | 2019-05-28 02:00 | NUR ---
EYES CLOSED BUT EASILY AROUSABLE. ACCU-CHEK 217, 4 UNITS NOVOLOG INSULIN SQ GIVEN PER SLIDING SCALE COV. VASOTEC 1.25MG IVP GIVEN FOR SBP>150, MORPHINE 4 MG IVP GIVEN FOR GENERAL DISCOMFORT, MELATONIN 3 MG PO GIVEN FOR SLEEP.
[2019-05-28] MEDS: MORPHINE 4 MG/ML INJ. SYRINGE IVP PRN ×3 (02:19→22:04)
[2019-05-28] MEDS: MELATONIN 3 MG TABLET PO PRN (02:20)
[2019-05-28] MEDS: ENALAPRILAT DIHYDRATE 1.25 MG/ML VIAL IVP PRN ×2 (02:20→17:54)
[2019-05-28] MEDS: INSULIN LISPRO SLIDING SCALE 100 UNITS/ML VIAL (humaLOG) SUBCUT PRN ×4 (02:24→17:34)
--- NOTE | 2019-05-28 04:00 | NUR ---
SLEPT INTERMITTENTLY. SINUS SILVER AT TIMES, ASYMPTOMATIC. TURNED.
[2019-05-28] MEDS: NACL 0.9% 1,000 ML IV SCH (05:32)
[2019-05-28 05:49] LABS: BASOPHILS % (AUTO) 0.4 % (0.0-2.0); HEMATOCRIT 30.3 % (36-48); HEMOGLOBIN 9.7 g/dL (12.0-16.0); MEAN CORPUSCULAR HEMOGLOBIN 28 pg (27-31); MEAN CORPUSCULAR HGB CONC 32 % (32-36); MEAN CORPUSCULAR VOLUME 86 fL (79.0-98.0); MONOCYTES # (AUTO) 0.8 K/uL (0.0-1.0); MONOCYTES % (AUTO) 7.5 % (1.7-9.3); NEUTROPHILS # (AUTO) 8.4 K/uL (1.8-7.7); NEUTROPHILS % (AUTO) 82.1 % (40.0-70.0); PLATELET COUNT (AUTO) 321 K/uL (130-430); RED BLOOD CELL COUNT(AUTO) 3.52 MIL/uL (4.2-6.2); RED CELL DISTRIBUTION WIDTH 16.2 % (9.0-15.0); WHITE BLOOD COUNT (AUTO) 10.2 K/uL (4.8-10.8)
--- NOTE | 2019-05-28 06:00 | NUR ---
SLEPT FOR LONG PERIODS OF TIME. SINUS SILVER. UO GOOD. ACCU-CHECK 228, 4 UNITS NOVOLOG INSULIN SQ GIVEN PER SLIDING SCALE COV. NO COMPLAINTS OFFERED AT THIS TIME. REMAINS IN GUARDED CONDITION.
[2019-05-28 06:41] LABS: ALANINE AMINOTRANSFERASE 17 U/L (12-78); ALBUMIN 2.2 g/dL (3.4-4.8); ANION GAP 7 (5-15); ASPARTATE AMINOTRANSFERASE 10 U/L (10-37); CHLORIDE 112 mmol/L (98-107); CREATININE 0.86 mg/dL (0.55-1.30); GLUCOSE 225 mg/dL (70-99); POTASSIUM 4.4 mmol/L (3.5-5.1); SODIUM SERUM 145 mmol/L (136-145); TOTAL BILIRUBIN 0.3 mg/dL (0.0-1.0); UREA NITROGEN, BLOOD 33 mg/dL (8-21)
--- NOTE | 2019-05-28 07:25 | NUR ---
RECEIVED NURSING REPORT FROM POCKET ASSEMBLERMELVIN STEWARD R.N
--- NOTE | 2019-05-28 08:15 | NUR ---
SEE PATIENT, ORDERED DOWN GRADE TO TELE STATUS AND START P.T SERVICE
[2019-05-28] MEDS: LEVOFLOXACIN 500 MG/D5W 100 ML IV SCH (08:31)
[2019-05-28] MEDS: amLODIPine BESYLATE 10 MG TABLET NG SCH (08:32)
[2019-05-28] MEDS: methylPREDNISolone SOD SUCC/PF 62.5 MG/ML VIAL IVP SCH ×2 (08:32→20:46)
[2019-05-28] MEDS: CARVEDILOL 6.25 MG TABLET (COREG) PO SCH ×2 (08:33→20:46)
[2019-05-28] MEDS: ENOXAPARIN SODIUM 40 MG/0.4 ML SYRINGE SUBCUT SCH (08:38)
--- NOTE | 2019-05-28 09:07 | NUR ---
DR. JAEGER SEE PATIENT
--- NOTE | 2019-05-28 10:03 | NUR ---
DR. JAEGER ORDER, CHANGE ACCU CHECK TO EVERY 6 HOURS, KEEP SAME SLIDING SCALE
[2019-05-28] MEDS: 0.45% NACL 1,000 ML IV SCH (10:30)
--- NOTE | 2019-05-28 15:30 | NUR ---
START PHYSICAL THERAPY SERVICE AT BEDSIDE WITH P-T STAFF PETER
--- NOTE | 2019-05-28 19:15 | NUR ---
Opening Note Received patient from ICU and received report from Hayes Capps RN. Patient is awake, AOx4 resting in bed. Nonlabored breathing on 4L NC. Jacques catheter drainage bag is to gravity and securement device in place. Patient has PIIC to JAI, sign was placed above head "no B/P or blood draw on right arm". She is eating her dinner. Bed is locked to lowest position, side rails up 3x, bed alarm on and instructed on use of call light.
--- NOTE | 2019-05-28 19:15 | NUR ---
ORDERED DOWN GRADE TO TELE STATUS AND TRANSFER PATIENT TO ROOM 111 A, WAS NOTIFIED PATIENT,S SISTER HOANG ( [id number]) AWARE, GIVE COMPLETE NURSING REPORT TO RESIDENTIAL PROGRAM WORKER ZAY Tobias
--- NOTE | 2019-05-28 20:34 | NUR ---
Breathing treatment RT placed patient on breathing treatment.
--- NOTE | 2019-05-28 20:55 | NUR ---
Medications Due medications; Coreg and Solumedrol given; educated on side effects and she verbalized understanding.
--- NOTE | 2019-05-28 22:10 | NUR ---
c/o pain Patient reporting severe pain to right shoulder. Administered Morphine 4mg for severe pain as ordered.
[2019-05-29] MEDS: ONDANSETRON HCL 4 MG/2 ML VIAL IVP PRN (00:11)
[2019-05-29] MEDS: MORPHINE 4 MG/ML INJ. SYRINGE IVP PRN ×3 (00:12→05:53)
--- NOTE | 2019-05-29 00:12 | NUR ---
c/o pain, nausea Patient was repositioned and turned and provided with clean pad. She reported severe pain to shoulder and also nausea. Morphine and Zofran given as ordered.
--- NOTE | 2019-05-29 00:25 | NUR ---
RN rounds Patient is awake and talking to patient in bed B. Presently she reports pain is tolerable and declined pain medication, denies nausea. Addendum: 05/29/19 at 0256 by Jennifer Womack RN incorrect time on this note, the correct time is 719
--- NOTE | 2019-05-29 00:25 | NUR ---
Fingerstick BG Fingerstick BG test done w/ result of 284 mg/dL; 6 units of Humalog given as ordered per sliding scale.
[2019-05-29] MEDS: INSULIN LISPRO SLIDING SCALE 100 UNITS/ML VIAL (humaLOG) SUBCUT PRN ×3 (00:29→17:46)
[2019-05-29] MEDS: IPRATROPIUM BROM 0.5 MG/2.5 ML VIAL.NEB (ATROVENT) INH SCH ×4 (00:45→19:37)
[2019-05-29] MEDS: ALBUTEROL SULFATE 0.083% 2.5 MG/3 ML VIAL.NEB INH SCH ×4 (00:45→19:37)
[2019-05-29 01:48] VITALS: BP_SYST 155
--- NOTE | 2019-05-29 02:25 | NUR ---
RN rounds Patient is awake and talking to patient in bed B. Presently she reports pain is tolerable and declined pain medication, denies nausea.
[2019-05-29] MEDS: 0.45% NACL 1,000 ML IV SCH (03:47)
--- NOTE | 2019-05-29 04:05 | NUR ---
Pain med, IVF Patient called to request medication for severe pain and Morphine administered as ordered. She refused reposition to side stating it is painful; removed pillow from back and placed under right leg, she did not want pillow under left leg. Hung new bag of IVF and infusing as ordered at 50 ml/hr
--- NOTE | 2019-05-29 05:25 | NUR ---
Fingerstick BG Fingerstick BG test done w/ result of 252 mg/dL; 6 units of Humalog given as ordered per sliding scale.
[2019-05-29 05:55] LABS: BASOPHILS % (AUTO) 0.1 % (0.0-2.0); HEMATOCRIT 33.1 % (36-48); HEMOGLOBIN 10.4 g/dL (12.0-16.0); LYMPHOCYTES % (AUTO) 7.6 % (20.5-51.5); MEAN CORPUSCULAR HEMOGLOBIN 27 pg (27-31); MEAN CORPUSCULAR HGB CONC 32 % (32-36); MEAN CORPUSCULAR VOLUME 87 fL (79.0-98.0); MONOCYTES # (AUTO) 0.8 K/uL (0.0-1.0); MONOCYTES % (AUTO) 6.7 % (1.7-9.3); NEUTROPHILS # (AUTO) 10.8 K/uL (1.8-7.7); NEUTROPHILS % (AUTO) 85.6 % (40.0-70.0); PLATELET COUNT (AUTO) 414 K/uL (130-430); RED BLOOD CELL COUNT(AUTO) 3.82 MIL/uL (4.2-6.2); RED CELL DISTRIBUTION WIDTH 16.2 % (9.0-15.0); WHITE BLOOD COUNT (AUTO) 12.6 K/uL (4.8-10.8)
--- NOTE | 2019-05-29 05:56 | NUR ---
Pain med Patient called to request medication for severe pain and Morphine administered as ordered.
[2019-05-29 11:39] LABS: ALANINE AMINOTRANSFERASE 19 U/L (12-78); ALBUMIN 2.5 g/dL (3.4-4.8); ANION GAP 8 (5-15); ASPARTATE AMINOTRANSFERASE 11 U/L (10-37); CALCIUM 8.2 mg/dL (8.4-11.0); CHLORIDE 110 mmol/L (98-107); CREATININE 0.83 mg/dL (0.55-1.30); GLUCOSE 259 mg/dL (70-99); SODIUM SERUM 143 mmol/L (136-145); TOTAL BILIRUBIN 0.3 mg/dL (0.0-1.0); UREA NITROGEN, BLOOD 32 mg/dL (8-21)
[2019-05-29 12:00] VITALS: BP_SYST 138
[2019-05-29] MEDS ORDERED: FUROSEMIDE 20 MG/2 ML VIAL IVP ONE (12:15)
[2019-05-29 13:05] VITALS: BP_SYST 155
--- NOTE | 2019-05-29 14:12 | NUR ---
Discharge Planning Received discharge to [facility] order placed by Dr Hanna that was okayed by Dr Her. Met with patient, sister, Mile [phone], and friend at bedside. Patient is alert and oriented and preferred friend and sister remain in the room. Patient is agreeable to return to [facility] and signed the Patient Choice of Vendor form. [facility] phoned Brooklynn at [facility], p [phone] f [phone]. They have beds available. Brooklynn requested patient's information be faxed. Done. Phoned Kristina Harrell CM [phone], and left a voicemail message as to above. Addendum: 05/29/19 at 1530 by Telma Quijano LCSW DANIEL Pate spoke with [facility], p [phone] f [phone]. Kristina will set up auth and transport to [facility], maybe around 18:00. [facility] faxed patient information and order to [facility] S[facility]HE[facility]. Phoned Brooklynn at [facility] and provided [facility] contact information. Addendum: 05/29/19 at 1532 by Telma Quijano [employer]LINDER INSPECTOR AND TESTER Accepted to room 135A
[2019-05-29 16:15] VITALS: BP_SYST 156
[2019-05-29 18:00] VITALS: BP_SYST 156
--- NOTE | 2019-05-29 18:30 | NUR ---
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 resting comfortably. picc line intact and fol;ey cath in. awaiting for dr gemma hong to call back. picc line in placed on the r upper arm. no infiltration noted. bed to the lowest position and siderails up and locked.
[2019-05-29] MEDS: MORPHINE 2 MG/ML INJ. SYRINGE IVP PRN (20:14)
--- NOTE | 2019-05-29 21:13 | NUR ---
DISCHARGE Patient vital signs within normal limits, taken and recorded. No signs of respiratory distress and discomfort noted. Breathing even and unlabored. Jacques catheter removed, patient tolerated well. PICC line removed, catheter intact, patient tolerated well. Photographs taken, for skin assessment. Report given to [facility]. Safety precautions in place. Patient safely transferred via gurney to ambulance. Discharge in the hospital
[2019-05-30] MEDS ORDERED: PREDNISONE 20 MG TABLET PO SCH (08:00)
== END 2019-05-29 21:15 | DRG 871 ==
LOC: SED 03:21 → SIC 05:25 → STU 05-28 18:59
PROVIDERS: ADMIT Internal Medicine Hospice and Palliative Medicine; ATTEND Internal Medicine Hospice and Palliative Medicine
PROC: 5A1945Z Respiratory Ventilation, 24-96 Consecutive Hours (ICD-10-PCS; principal; 2019-05-24)
PROC: 02HV33Z Insertion of Infusion Device into Superior Vena Cava, Percutaneous Approach (ICD-10-PCS; 2019-05-24)
PROC: B548ZZA Ultrasonography of Superior Vena Cava, Guidance (ICD-10-PCS; 2019-05-24)
PROC: 5A09357 Assistance with Respiratory Ventilation, Less than 24 Consecutive Hours, Continuous Positive Airway Pressure (ICD-10-PCS; 2019-05-24)
PROC: 5A1945Z Respiratory Ventilation, 24-96 Consecutive Hours (ICD-10-PCS; 2019-05-24)
PROC: 0BH17EZ Insertion of Endotracheal Airway into Trachea, Via Natural or Artificial Opening (ICD-10-PCS; 2019-05-24)
DX: A41.9 Sepsis, unspecified organism (principal); J18.9 Pneumonia, unspecified organism; I21.A1 Myocardial infarction type 2; J96.01 Acute respiratory failure with hypoxia; I50.31 Acute diastolic (congestive) heart failure; E43 Unspecified severe protein-calorie malnutrition; E87.2 Acidosis; J44.0 Chronic obstructive pulmonary disease with (acute) lower respiratory infection; N39.0 Urinary tract infection, site not specified; Z99.11 Dependence on respirator [ventilator] status; J44.1 Chronic obstructive pulmonary disease with (acute) exacerbation; I11.0 Hypertensive heart disease with heart failure; D64.9 Anemia, unspecified; E11.65 Type 2 diabetes mellitus with hyperglycemia; E66.9 Obesity, unspecified; E78.5 Hyperlipidemia, unspecified; F17.210 Nicotine dependence, cigarettes, uncomplicated; M81.0 Age-related osteoporosis without current pathological fracture; Z87.01 Personal history of pneumonia (recurrent); Z88.0 Allergy status to penicillin; Z88.5 Allergy status to narcotic agent; Z88.8 Allergy status to other drugs, medicaments and biological substances; Z88.9 Allergy status to unspecified drugs, medicaments and biological substances; Z59.0 Homelessness; Z68.29 Body mass index [BMI] 29.0-29.9, adult; Z79.899 Other long term (current) drug therapy; Z74.01 Bed confinement status
CPT/HCPCS: 36415; 36600; 71045; 71275; 73502; 80053; 80061; 81000-TC; 82803-TC; 82962; 83605; 83735-TC; 83880; 84443-TC; 84484; 85007; 85025; 85027; 85379; 85610-TC; 85730-TC; 86710; 87040-TC; 87070-TC; 87081; 87086; 87205-TC; 93005; 93306; 93970; 94002; 94003; 94640; 94760; 96361; 96374; 96375; 97110-GP; 97112-GP; 97530-GP; 99285; C1751; G0378; J1650; J1940; J1956; J2060; J2270; J2405; J2930; J7030; J7613; Q9967

== ENCOUNTER 2019-06-08 22:48 | Inpatient (IN) | payer OTHER ==
[~2019-06-08] VITALS: Ht 167.6 cm; Wt 67.2 kg
[2019-06-08 22:48] VITALS: BP_SYST 178
[~2019-06-08 22:48] MED LIST: ALEN10TA7 PO; CARV3.1246 PO; CIPR-261 PO; CYM30 PO; FURO-149 PO; GABA-531 PO; GLIP-201 PO; GLU850 PO; HYDR-3917 PO; LACTOBACILLUS PO; LIP20 PO; LOVI30 SQ; MIDO5TAB PO; OMEP20CA11 PO
[2019-06-08] MEDS ORDERED: ETOMIDATE 20 MG/ 10 ML VIAL (AMIDATE) ONE ×2 (23:26)
[2019-06-08 23:37] LABS: BASOPHILS # (AUTO) 0.2 K/uL (0.0-0.2); BASOPHILS % (AUTO) 1.2 % (0.0-2.0); EOSINOPHILS # (AUTO) 0.2 K/uL (0.0-0.4); EOSINOPHILS % (AUTO) 1.2 % (0.0-4.0); HEMATOCRIT 32.9 % (36-48); HEMOGLOBIN 10.3 g/dL (12.0-16.0); LYMPHOCYTES # (AUTO) 3.8 K/uL (1.0-5.5); LYMPHOCYTES % (AUTO) 24.9 % (20.5-51.5); MEAN CORPUSCULAR HEMOGLOBIN 28 pg (27-31); MEAN CORPUSCULAR HGB CONC 31 % (32-36); MEAN CORPUSCULAR VOLUME 89 fL (79.0-98.0); MONOCYTES # (AUTO) 0.7 K/uL (0.0-1.0); MONOCYTES % (AUTO) 4.6 % (1.7-9.3); NEUTROPHILS # (AUTO) 10.4 K/uL (1.8-7.7); NEUTROPHILS % (AUTO) 68.1 % (40.0-70.0); PLATELET COUNT (AUTO) 507 K/uL (130-430); RED BLOOD CELL COUNT(AUTO) 3.68 MIL/uL (4.2-6.2); RED CELL DISTRIBUTION WIDTH 17.6 % (9.0-15.0); WHITE BLOOD COUNT (AUTO) 15.3 K/uL (4.8-10.8)
[2019-06-08] MEDS ORDERED: LORazepam 2 MG/ML VIAL ONE (23:59)
[2019-06-09] VITALS (23 sets, daily range): BP systolic 72–157
[2019-06-09 00:06] LABS: ANION GAP 6 (5-15); CALCIUM 7.7 mg/dL (8.4-11.0); CHLORIDE 102 mmol/L (98-107); GLUCOSE 352 mg/dL (70-99); POTASSIUM 4.7 mmol/L (3.5-5.1); SODIUM SERUM 136 mmol/L (136-145); UREA NITROGEN, BLOOD 24 mg/dL (8-21)
[2019-06-09 00:08] LABS: ASPARTATE AMINOTRANSFERASE 32 U/L (10-37); TOTAL BILIRUBIN 0.3 mg/dL (0.0-1.0)
[2019-06-09 00:09] LABS: ALANINE AMINOTRANSFERASE 27 U/L (12-78); ALBUMIN 2.5 g/dL (3.4-4.8)
[2019-06-09] MEDS ORDERED: PROPOFOL DRIP 100 ML IV ONE (00:15)
[2019-06-09] MEDS ORDERED: NACL 0.9% 1,000 ML IV ONE ×2 (00:30→00:45)
[2019-06-09 00:37] LABS: PROTHROMBIN TIME 9.7 SECS (9.5-12.5)
[2019-06-09] MEDS ORDERED: VANCOMYCIN HCL 1,000 MG in NS 250 ML IV ONE (00:45)
[2019-06-09] MEDS ORDERED: DOPamine PREMIX 250 ML IV ONE (01:00)
[2019-06-09] MEDS ORDERED: VANCOMYCIN HCL 1000 MG/VIAL IV ONE (01:15)
[2019-06-09] MEDS ORDERED: NOREPINEPHRINE BITARTRATE 4 MG in NS 246 ML IV ONE (01:45)
[2019-06-09] MEDS ORDERED: NOREPINEPHRINE 4 MG/4 ML VIAL IV ONE ×3 (01:51→23:25)
[2019-06-09] MEDS ORDERED: ALBUTEROL SULFATE 0.083% 2.5 MG/3 ML VIAL.NEB INH PRN (06:45)
[2019-06-09] MEDS ORDERED: ACETAMINOPHEN 325 MG TABLET PO PRN (06:45)
[2019-06-09 07:34] LABS: BASOPHILS # (AUTO) 0.1 K/uL (0.0-0.2); BASOPHILS % (AUTO) 0.8 % (0.0-2.0); EOSINOPHILS % (AUTO) 0.1 % (0.0-4.0); HEMATOCRIT 29.8 % (36-48); HEMOGLOBIN 9.6 g/dL (12.0-16.0); LYMPHOCYTES # (AUTO) 1.4 K/uL (1.0-5.5); MEAN CORPUSCULAR HEMOGLOBIN 28 pg (27-31); MEAN CORPUSCULAR HGB CONC 32 % (32-36); MEAN CORPUSCULAR VOLUME 87 fL (79.0-98.0); MONOCYTES # (AUTO) 1.2 K/uL (0.0-1.0); MONOCYTES % (AUTO) 8.1 % (1.7-9.3); NEUTROPHILS # (AUTO) 11.6 K/uL (1.8-7.7); PLATELET COUNT (AUTO) 403 K/uL (130-430); RED BLOOD CELL COUNT(AUTO) 3.41 MIL/uL (4.2-6.2); RED CELL DISTRIBUTION WIDTH 16.9 % (9.0-15.0); WHITE BLOOD COUNT (AUTO) 14.3 K/uL (4.8-10.8)
[2019-06-09 07:51] LABS: ANION GAP 7 (5-15); CALCIUM 7.3 mg/dL (8.4-11.0); CHLORIDE 106 mmol/L (98-107); CREATININE 0.85 mg/dL (0.55-1.30); GLUCOSE 224 mg/dL (70-99); POTASSIUM 4.4 mmol/L (3.5-5.1); SODIUM SERUM 140 mmol/L (136-145); UREA NITROGEN, BLOOD 27 mg/dL (8-21)
[2019-06-09] MEDS: NACL 0.9% 1,000 ML IV SCH ×2 (07:59→14:38)
[2019-06-09 08:10] LABS: ALANINE AMINOTRANSFERASE 23 U/L (12-78); ALBUMIN 2.3 g/dL (3.4-4.8); ASPARTATE AMINOTRANSFERASE 27 U/L (10-37); TOTAL BILIRUBIN 0.4 mg/dL (0.0-1.0)
[2019-06-09] MEDS ORDERED: VANCOMYCIN HCL 500 MG in NS 100 ML IV ONE (09:00)
[2019-06-09] MEDS ORDERED: ONDANSETRON HCL 4 MG/2 ML VIAL IVP PRN (09:15)
[2019-06-09] MEDS ORDERED: NITROGLYCERIN 0.4 MG TAB.SUBL SL PRN (09:15)
[2019-06-09] MEDS: ENOXAPARIN SODIUM 40 MG/0.4 ML SYRINGE SUBCUT SCH (09:42)
[2019-06-09] MEDS: MORPHINE 2 MG/ML INJ. SYRINGE IVP PRN ×2 (10:19→18:29)
[2019-06-09] MEDS ORDERED: ETOMIDATE 20 MG/ 10 ML VIAL (AMIDATE) IVP ONE (13:35)
[2019-06-09] MEDS ORDERED: SUCCINYLCHOLINE CHLORIDE 20 MG/ML(QUELICIN) IVP ONE (13:35)
[2019-06-09] MEDS ORDERED: ATORVASTATIN 20 MG TABLET PO ONE (17:15)
[2019-06-09] MEDS ORDERED: ASPIRIN 325 MG TABLET PO ONE (17:15)
[2019-06-09] MEDS ORDERED: PROPOFOL 200MG/ 20ML VIAL (DIPRIVAN) IV PRN (20:45)
[2019-06-09] MEDS ORDERED: NOREPINEPHRINE BITARTRATE 4 MG in D5W 246 ML IV PRN (20:45)
[2019-06-09] MEDS: FAMOTIDINE PF 20 MG/2 ML VIAL IVP SCH (21:00)
[2019-06-09] MEDS ORDERED: PROPOFOL DRIP 1000 MG/ 100 ML BTL IV PRN (21:15)
[2019-06-10] VITALS (39 sets, daily range): BP systolic 79–166
[2019-06-10] MEDS: MORPHINE 2 MG/ML INJ. SYRINGE IVP PRN ×2 (01:04→11:55)
[2019-06-10 06:46] LABS: ALANINE AMINOTRANSFERASE 17 U/L (12-78); ANION GAP 8 (5-15); ASPARTATE AMINOTRANSFERASE 17 U/L (10-37); CALCIUM 7.2 mg/dL (8.4-11.0); CHLORIDE 108 mmol/L (98-107); CREATININE 0.79 mg/dL (0.55-1.30); GLUCOSE 127 mg/dL (70-99); POTASSIUM 3.6 mmol/L (3.5-5.1); SODIUM SERUM 141 mmol/L (136-145); TOTAL BILIRUBIN 0.2 mg/dL (0.0-1.0); UREA NITROGEN, BLOOD 21 mg/dL (8-21)
[2019-06-10] MEDS ORDERED: ASPIRIN 325 MG TABLET PO SCH (09:00)
[2019-06-10] MEDS: INSULIN GLARGINE 100 UNITS/ML 10 ML VIAL SUBCUT SCH (09:00)
[2019-06-10] MEDS ORDERED: ATORVASTATIN 20 MG TABLET PO SCH (09:00)
[2019-06-10] MEDS ORDERED: ENOXAPARIN SODIUM 40 MG/0.4 ML SYRINGE SUBCUT SCH (09:00)
[2019-06-10] MEDS: ATORVASTATIN 20 MG TABLET PO SCH (09:00)
[2019-06-10] MEDS: ASPIRIN 325 MG TABLET PO SCH (09:00)
[2019-06-10] MEDS: FAMOTIDINE PF 20 MG/2 ML VIAL IVP SCH ×2 (09:03→20:18)
[2019-06-10] MEDS: ENOXAPARIN SODIUM 40 MG/0.4 ML SYRINGE SUBCUT SCH (09:04)
[2019-06-10 09:55] LABS: BASOPHILS # (AUTO) 0.1 K/uL (0.0-0.2); EOSINOPHILS # (AUTO) 0.4 K/uL (0.0-0.4); EOSINOPHILS % (AUTO) 3.9 % (0.0-4.0); HEMATOCRIT 24.6 % (36-48); LYMPHOCYTES # (AUTO) 1.6 K/uL (1.0-5.5); LYMPHOCYTES % (AUTO) 15.1 % (20.5-51.5); MEAN CORPUSCULAR HEMOGLOBIN 28 pg (27-31); MEAN CORPUSCULAR HGB CONC 33 % (32-36); MEAN CORPUSCULAR VOLUME 87 fL (79.0-98.0); MONOCYTES % (AUTO) 9.3 % (1.7-9.3); NEUTROPHILS # (AUTO) 7.5 K/uL (1.8-7.7); NEUTROPHILS % (AUTO) 70.7 % (40.0-70.0); PLATELET COUNT (AUTO) 300 K/uL (130-430); RED BLOOD CELL COUNT(AUTO) 2.83 MIL/uL (4.2-6.2); RED CELL DISTRIBUTION WIDTH 17.2 % (9.0-15.0); WHITE BLOOD COUNT (AUTO) 10.5 K/uL (4.8-10.8)
[2019-06-10] MEDS: VANCOMYCIN HCL 1,500 MG in NS 250 ML IV SCH (10:42)
[2019-06-10] MEDS: INSULIN LISPRO SLIDING SCALE 100 UNITS/ML VIAL (humaLOG) SUBCUT PRN ×3 (11:06→20:30)
[2019-06-10] MEDS: LORazepam 2 MG/ML VIAL IVP PRN ×3 (11:34→23:17)
[2019-06-10] MEDS ORDERED: methylPREDNISolone SOD SUCC/PF 62.5 MG/ML VIAL IVP ONE (12:00)
[2019-06-10] MEDS ORDERED: methylPREDNISolone SOD SUCC/PF 62.5 MG/ML VIAL ONE (12:10)
[2019-06-10] MEDS ORDERED: MIDAZOLAM HCL 5 MG/5 ML VIAL ONE (12:22)
[2019-06-10] MEDS: 0.45% NACL 1,000 ML IV SCH (14:02)
[2019-06-10] MEDS ORDERED: FUROSEMIDE 20 MG/2 ML VIAL IVP ONE (15:15)
[2019-06-10] MEDS: methylPREDNISolone SOD SUCC/PF 62.5 MG/ML VIAL IVP SCH (21:05)
[2019-06-11] VITALS (29 sets, daily range): BP systolic 110–169
[2019-06-11] MEDS: LORazepam 2 MG/ML VIAL IVP PRN ×3 (02:50→14:52)
[2019-06-11 06:00] LABS: BASOPHILS # (AUTO) 0.1 K/uL (0.0-0.2); BASOPHILS % (AUTO) 0.6 % (0.0-2.0); EOSINOPHILS % (AUTO) 0.3 % (0.0-4.0); HEMATOCRIT 25.2 % (36-48); HEMOGLOBIN 8.2 g/dL (12.0-16.0); LYMPHOCYTES # (AUTO) 0.8 K/uL (1.0-5.5); LYMPHOCYTES % (AUTO) 8.5 % (20.5-51.5); MEAN CORPUSCULAR HEMOGLOBIN 29 pg (27-31); MEAN CORPUSCULAR HGB CONC 33 % (32-36); MEAN CORPUSCULAR VOLUME 88 fL (79.0-98.0); MONOCYTES # (AUTO) 0.2 K/uL (0.0-1.0); MONOCYTES % (AUTO) 2.2 % (1.7-9.3); NEUTROPHILS % (AUTO) 88.4 % (40.0-70.0); PLATELET COUNT (AUTO) 242 K/uL (130-430); RED BLOOD CELL COUNT(AUTO) 2.88 MIL/uL (4.2-6.2); RED CELL DISTRIBUTION WIDTH 17.2 % (9.0-15.0); WHITE BLOOD COUNT (AUTO) 9.1 K/uL (4.8-10.8)
[2019-06-11 06:39] LABS: ALANINE AMINOTRANSFERASE 19 U/L (12-78); ALBUMIN 2.1 g/dL (3.4-4.8); ANION GAP 10 (5-15); ASPARTATE AMINOTRANSFERASE 25 U/L (10-37); CHLORIDE 106 mmol/L (98-107); CREATININE 0.82 mg/dL (0.55-1.30); GLUCOSE 190 mg/dL (70-99); POTASSIUM 3.6 mmol/L (3.5-5.1); SODIUM SERUM 140 mmol/L (136-145); TOTAL BILIRUBIN 0.3 mg/dL (0.0-1.0); UREA NITROGEN, BLOOD 23 mg/dL (8-21)
[2019-06-11 06:44] LABS: CALCIUM 6.9 mg/dL (8.4-11.0)
[2019-06-11] MEDS: methylPREDNISolone SOD SUCC/PF 62.5 MG/ML VIAL IVP SCH ×3 (07:04→21:34)
[2019-06-11] MEDS: ATORVASTATIN 20 MG TABLET PO SCH (09:00)
[2019-06-11] MEDS: ASPIRIN 325 MG TABLET PO SCH (09:00)
[2019-06-11] MEDS: ENOXAPARIN SODIUM 40 MG/0.4 ML SYRINGE SUBCUT SCH (09:01)
[2019-06-11] MEDS: INSULIN GLARGINE 100 UNITS/ML 10 ML VIAL SUBCUT SCH (09:02)
[2019-06-11] MEDS: FUROSEMIDE 20 MG/2 ML VIAL IVP SCH (09:03)
[2019-06-11] MEDS: FAMOTIDINE PF 20 MG/2 ML VIAL IVP SCH ×2 (09:03→21:35)
[2019-06-11] MEDS: 0.45% NACL 1,000 ML IV SCH (09:05)
[2019-06-11] MEDS: VANCOMYCIN HCL 1,500 MG in NS 250 ML IV SCH (09:06)
[2019-06-11] MEDS: INSULIN LISPRO SLIDING SCALE 100 UNITS/ML VIAL (humaLOG) SUBCUT PRN ×3 (11:47→21:44)
[2019-06-11] MEDS: ALBUTEROL SULFATE 0.083% 2.5 MG/3 ML VIAL.NEB INH SCH (19:43)
[2019-06-11] MEDS: IPRATROPIUM BROM 0.5 MG/2.5 ML VIAL.NEB (ATROVENT) INH SCH (19:43)
[2019-06-12] VITALS (32 sets, daily range): BP systolic 105–166
[2019-06-12] MEDS: IPRATROPIUM BROM 0.5 MG/2.5 ML VIAL.NEB (ATROVENT) INH SCH ×3 (00:42→19:26)
[2019-06-12] MEDS: ALBUTEROL SULFATE 0.083% 2.5 MG/3 ML VIAL.NEB INH SCH ×3 (00:42→19:26)
[2019-06-12] MEDS: 0.45% NACL 1,000 ML IV SCH (06:06)
[2019-06-12] MEDS: methylPREDNISolone SOD SUCC/PF 62.5 MG/ML VIAL IVP SCH ×3 (06:07→21:24)
[2019-06-12] MEDS: INSULIN LISPRO SLIDING SCALE 100 UNITS/ML VIAL (humaLOG) SUBCUT PRN ×4 (06:21→21:50)
[2019-06-12] MEDS: MORPHINE 2 MG/ML INJ. SYRINGE IVP PRN ×4 (08:59→21:33)
[2019-06-12] MEDS: ASPIRIN 325 MG TABLET PO SCH (09:00)
[2019-06-12] MEDS: FAMOTIDINE PF 20 MG/2 ML VIAL IVP SCH ×2 (09:00→21:23)
[2019-06-12] MEDS: FUROSEMIDE 20 MG/2 ML VIAL IVP SCH (09:00)
[2019-06-12] MEDS: ATORVASTATIN 20 MG TABLET PO SCH (09:00)
[2019-06-12] MEDS: ENOXAPARIN SODIUM 40 MG/0.4 ML SYRINGE SUBCUT SCH (09:01)
[2019-06-12] MEDS: INSULIN GLARGINE 100 UNITS/ML 10 ML VIAL SUBCUT SCH (09:03)
[2019-06-12] MEDS: VANCOMYCIN HCL 1.25 GM/NS 250 ML IV SCH (15:26)
[2019-06-13] VITALS (29 sets, daily range): BP systolic 126–173
[2019-06-13] MEDS: ALBUTEROL SULFATE 0.083% 2.5 MG/3 ML VIAL.NEB INH SCH ×4 (00:57→19:48)
[2019-06-13] MEDS: IPRATROPIUM BROM 0.5 MG/2.5 ML VIAL.NEB (ATROVENT) INH SCH ×4 (00:57→19:47)
[2019-06-13] MEDS: 0.45% NACL 1,000 ML IV SCH (04:37)
[2019-06-13 06:02] LABS: BASOPHILS % (AUTO) 0.2 % (0.0-2.0); HEMOGLOBIN 8.2 g/dL (12.0-16.0); LYMPHOCYTES # (AUTO) 0.6 K/uL (1.0-5.5); LYMPHOCYTES % (AUTO) 7.5 % (20.5-51.5); MEAN CORPUSCULAR HEMOGLOBIN 28 pg (27-31); MEAN CORPUSCULAR HGB CONC 33 % (32-36); MEAN CORPUSCULAR VOLUME 86 fL (79.0-98.0); MONOCYTES # (AUTO) 0.3 K/uL (0.0-1.0); MONOCYTES % (AUTO) 3.8 % (1.7-9.3); NEUTROPHILS % (AUTO) 88.5 % (40.0-70.0); PLATELET COUNT (AUTO) 224 K/uL (130-430); RED BLOOD CELL COUNT(AUTO) 2.91 MIL/uL (4.2-6.2); RED CELL DISTRIBUTION WIDTH 17.2 % (9.0-15.0); WHITE BLOOD COUNT (AUTO) 7.9 K/uL (4.8-10.8)
[2019-06-13] MEDS: MORPHINE 2 MG/ML INJ. SYRINGE IVP PRN ×3 (06:10→20:05)
[2019-06-13] MEDS: methylPREDNISolone SOD SUCC/PF 62.5 MG/ML VIAL IVP SCH ×3 (06:10→21:34)
[2019-06-13 06:15] LABS: ALANINE AMINOTRANSFERASE 14 U/L (12-78); ALBUMIN 2.2 g/dL (3.4-4.8); ANION GAP 12 (5-15); CHLORIDE 109 mmol/L (98-107); CREATININE 0.87 mg/dL (0.55-1.30); GLUCOSE 184 mg/dL (70-99); POTASSIUM 3.2 mmol/L (3.5-5.1); SODIUM SERUM 143 mmol/L (136-145); TOTAL BILIRUBIN 0.3 mg/dL (0.0-1.0); UREA NITROGEN, BLOOD 30 mg/dL (8-21)
[2019-06-13] MEDS: INSULIN LISPRO SLIDING SCALE 100 UNITS/ML VIAL (humaLOG) SUBCUT PRN ×4 (06:19→20:11)
[2019-06-13 07:29] LABS: CALCIUM 6.9 mg/dL (8.4-11.0)
[2019-06-13 07:55] LABS: ASPARTATE AMINOTRANSFERASE 8 U/L (10-37)
[2019-06-13] MEDS: ATORVASTATIN 20 MG TABLET PO SCH (09:00)
[2019-06-13] MEDS: ASPIRIN 325 MG TABLET PO SCH (09:00)
[2019-06-13] MEDS: FAMOTIDINE PF 20 MG/2 ML VIAL IVP SCH ×2 (09:06→20:05)
[2019-06-13] MEDS: FUROSEMIDE 20 MG/2 ML VIAL IVP SCH (09:07)
[2019-06-13] MEDS: ENOXAPARIN SODIUM 40 MG/0.4 ML SYRINGE SUBCUT SCH (09:08)
[2019-06-13] MEDS ORDERED: FUROSEMIDE 20 MG/2 ML VIAL IVP ONE (09:45)
[2019-06-13] MEDS: INSULIN GLARGINE 100 UNITS/ML 10 ML VIAL SUBCUT SCH (10:14)
[2019-06-13] MEDS: VANCOMYCIN HCL 1.25 GM/NS 250 ML IV SCH (15:11)
[2019-06-14] VITALS (14 sets, daily range): BP systolic 118–173
[2019-06-14] MEDS: IPRATROPIUM BROM 0.5 MG/2.5 ML VIAL.NEB (ATROVENT) INH SCH ×4 (01:29→19:47)
[2019-06-14] MEDS: ALBUTEROL SULFATE 0.083% 2.5 MG/3 ML VIAL.NEB INH SCH ×4 (01:30→19:46)
[2019-06-14 05:26] LABS: BASOPHILS # (AUTO) 0.1 K/uL (0.0-0.2); BASOPHILS % (AUTO) 1.3 % (0.0-2.0); EOSINOPHILS # (AUTO) 0.1 K/uL (0.0-0.4); EOSINOPHILS % (AUTO) 1.3 % (0.0-4.0); HEMATOCRIT 28.1 % (36-48); HEMOGLOBIN 9.1 g/dL (12.0-16.0); LYMPHOCYTES # (AUTO) 0.5 K/uL (1.0-5.5); LYMPHOCYTES % (AUTO) 6.3 % (20.5-51.5); MEAN CORPUSCULAR HEMOGLOBIN 28 pg (27-31); MEAN CORPUSCULAR HGB CONC 33 % (32-36); MEAN CORPUSCULAR VOLUME 86 fL (79.0-98.0); MONOCYTES # (AUTO) 0.3 K/uL (0.0-1.0); MONOCYTES % (AUTO) 4.3 % (1.7-9.3); NEUTROPHILS # (AUTO) 6.4 K/uL (1.8-7.7); NEUTROPHILS % (AUTO) 86.8 % (40.0-70.0); PLATELET COUNT (AUTO) 225 K/uL (130-430); RED BLOOD CELL COUNT(AUTO) 3.25 MIL/uL (4.2-6.2); WHITE BLOOD COUNT (AUTO) 7.3 K/uL (4.8-10.8)
[2019-06-14 05:42] LABS: ALANINE AMINOTRANSFERASE 11 U/L (12-78); ALBUMIN 2.4 g/dL (3.4-4.8); ANION GAP 8 (5-15); ASPARTATE AMINOTRANSFERASE 9 U/L (10-37); CALCIUM 7.5 mg/dL (8.4-11.0); CHLORIDE 109 mmol/L (98-107); CREATININE 0.94 mg/dL (0.55-1.30); GLUCOSE 247 mg/dL (70-99); POTASSIUM 3.4 mmol/L (3.5-5.1); SODIUM SERUM 143 mmol/L (136-145); TOTAL BILIRUBIN 0.3 mg/dL (0.0-1.0); UREA NITROGEN, BLOOD 28 mg/dL (8-21)
[2019-06-14] MEDS: methylPREDNISolone SOD SUCC/PF 62.5 MG/ML VIAL IVP SCH ×3 (06:39→20:49)
[2019-06-14] MEDS: INSULIN LISPRO SLIDING SCALE 100 UNITS/ML VIAL (humaLOG) SUBCUT PRN ×4 (06:52→22:00)
[2019-06-14] MEDS: MORPHINE 2 MG/ML INJ. SYRINGE IVP PRN ×3 (07:09→16:03)
[2019-06-14] MEDS: FUROSEMIDE 20 MG/2 ML VIAL IVP SCH (08:18)
[2019-06-14] MEDS: FAMOTIDINE PF 20 MG/2 ML VIAL IVP SCH ×2 (08:18→20:49)
[2019-06-14] MEDS: ASPIRIN 325 MG TABLET PO SCH (08:19)
[2019-06-14] MEDS: ATORVASTATIN 20 MG TABLET PO SCH (08:19)
[2019-06-14] MEDS: INSULIN GLARGINE 100 UNITS/ML 10 ML VIAL SUBCUT SCH (08:21)
[2019-06-14] MEDS: ENOXAPARIN SODIUM 40 MG/0.4 ML SYRINGE SUBCUT SCH (08:22)
[2019-06-14] MEDS: VANCOMYCIN HCL 1.25 GM/NS 250 ML IV SCH (15:15)
[2019-06-14] MEDS ORDERED: POTASSIUM CHLORIDE 20 MEQ TAB.PRT.SR PO ONE (15:30)
[2019-06-15] MEDS: ALBUTEROL SULFATE 0.083% 2.5 MG/3 ML VIAL.NEB INH SCH ×4 (01:08→20:09)
[2019-06-15] MEDS: IPRATROPIUM BROM 0.5 MG/2.5 ML VIAL.NEB (ATROVENT) INH SCH ×4 (01:08→20:10)
[2019-06-15 01:42] VITALS: BP_SYST 141
[2019-06-15] MEDS: INSULIN LISPRO SLIDING SCALE 100 UNITS/ML VIAL (humaLOG) SUBCUT PRN ×4 (06:31→22:17)
[2019-06-15] MEDS: MORPHINE 2 MG/ML INJ. SYRINGE IVP PRN ×3 (06:52→21:27)
[2019-06-15 06:54] LABS: BASOPHILS % (AUTO) 0.1 % (0.0-2.0); HEMATOCRIT 28.9 % (36-48); HEMOGLOBIN 9.5 g/dL (12.0-16.0); LYMPHOCYTES # (AUTO) 0.7 K/uL (1.0-5.5); LYMPHOCYTES % (AUTO) 7.7 % (20.5-51.5); MEAN CORPUSCULAR HEMOGLOBIN 28 pg (27-31); MEAN CORPUSCULAR HGB CONC 33 % (32-36); MEAN CORPUSCULAR VOLUME 86 fL (79.0-98.0); MONOCYTES # (AUTO) 0.6 K/uL (0.0-1.0); MONOCYTES % (AUTO) 6.8 % (1.7-9.3); NEUTROPHILS # (AUTO) 7.2 K/uL (1.8-7.7); NEUTROPHILS % (AUTO) 85.4 % (40.0-70.0); PLATELET COUNT (AUTO) 235 K/uL (130-430); RED BLOOD CELL COUNT(AUTO) 3.37 MIL/uL (4.2-6.2); RED CELL DISTRIBUTION WIDTH 17.4 % (9.0-15.0); WHITE BLOOD COUNT (AUTO) 8.5 K/uL (4.8-10.8)
[2019-06-15 07:00] LABS: ANION GAP 6 (5-15); CHLORIDE 111 mmol/L (98-107); CREATININE 1.01 mg/dL (0.55-1.30); GLUCOSE 229 mg/dL (70-99); POTASSIUM 4.6 mmol/L (3.5-5.1); SODIUM SERUM 144 mmol/L (136-145); UREA NITROGEN, BLOOD 26 mg/dL (8-21)
[2019-06-15 08:00] VITALS: BP_SYST 132
[2019-06-15] MEDS: INSULIN GLARGINE 100 UNITS/ML 10 ML VIAL SUBCUT SCH (09:00)
[2019-06-15 10:20] VITALS: BP_SYST 132
[2019-06-15] MEDS: FAMOTIDINE PF 20 MG/2 ML VIAL IVP SCH ×2 (13:25→21:15)
[2019-06-15] MEDS: methylPREDNISolone SOD SUCC/PF 62.5 MG/ML VIAL IVP SCH (13:25)
[2019-06-15] MEDS: FUROSEMIDE 20 MG/2 ML VIAL IVP SCH (13:26)
[2019-06-15] MEDS: ASPIRIN 325 MG TABLET PO SCH (13:27)
[2019-06-15] MEDS: ATORVASTATIN 20 MG TABLET PO SCH (13:27)
[2019-06-15] MEDS: ENOXAPARIN SODIUM 40 MG/0.4 ML SYRINGE SUBCUT SCH (13:33)
[2019-06-15] MEDS: FUROSEMIDE 40 MG TABLET PO SCH (16:00)
[2019-06-15 16:53] VITALS: BP_SYST 121
[2019-06-15 20:00] VITALS: BP_SYST 139
[2019-06-15] MEDS: PREDNISONE 20 MG TABLET PO SCH (21:15)
[2019-06-16 00:15] VITALS: BP_SYST 132
[2019-06-16] MEDS: ALBUTEROL SULFATE 0.083% 2.5 MG/3 ML VIAL.NEB INH SCH ×4 (00:54→19:43)
[2019-06-16] MEDS: IPRATROPIUM BROM 0.5 MG/2.5 ML VIAL.NEB (ATROVENT) INH SCH ×4 (00:54→19:43)
[2019-06-16] MEDS: MORPHINE 2 MG/ML INJ. SYRINGE IVP PRN ×3 (01:30→22:02)
[2019-06-16] MEDS: INSULIN LISPRO SLIDING SCALE 100 UNITS/ML VIAL (humaLOG) SUBCUT PRN ×4 (06:08→22:04)
[2019-06-16 08:00] VITALS: BP_SYST 155
[2019-06-16] MEDS: ASPIRIN 325 MG TABLET PO SCH (08:12)
[2019-06-16] MEDS: ATORVASTATIN 20 MG TABLET PO SCH (08:12)
[2019-06-16] MEDS: FUROSEMIDE 40 MG TABLET PO SCH (08:12)
[2019-06-16] MEDS: PREDNISONE 20 MG TABLET PO SCH ×2 (08:12→22:00)
[2019-06-16] MEDS: FAMOTIDINE PF 20 MG/2 ML VIAL IVP SCH ×2 (08:12→22:00)
[2019-06-16] MEDS: ENOXAPARIN SODIUM 40 MG/0.4 ML SYRINGE SUBCUT SCH (08:16)
[2019-06-16] MEDS: INSULIN GLARGINE 100 UNITS/ML 10 ML VIAL SUBCUT SCH (08:30)
[2019-06-16] MEDS ORDERED: D5W 1,000 ML IV PRN (11:30)
[2019-06-16] MEDS ORDERED: GLUCOSE 15 GM GEL (in 37.5 GM TUBE) PO PRN (11:30)
[2019-06-16] MEDS ORDERED: DEXTROSE 50%-WATER 50 ML DISP.SYRIN IVP PRN (11:30)
[2019-06-16] MEDS: VANCOMYCIN HCL 1,000 MG in NS 250 ML IV SCH (11:32)
[2019-06-16 12:07] VITALS: BP_SYST 137
[2019-06-16 16:12] VITALS: BP_SYST 144
[2019-06-16 20:00] VITALS: BP_SYST 139
[2019-06-17 00:52] VITALS: BP_SYST 130
[2019-06-17] MEDS: IPRATROPIUM BROM 0.5 MG/2.5 ML VIAL.NEB (ATROVENT) INH SCH ×4 (01:00→19:36)
[2019-06-17] MEDS: ALBUTEROL SULFATE 0.083% 2.5 MG/3 ML VIAL.NEB INH SCH ×4 (01:00→19:36)
[2019-06-17] MEDS: MORPHINE 2 MG/ML INJ. SYRINGE IVP PRN ×4 (04:28→21:54)
[2019-06-17] MEDS: INSULIN LISPRO SLIDING SCALE 100 UNITS/ML VIAL (humaLOG) SUBCUT PRN ×4 (06:39→21:06)
[2019-06-17 06:46] LABS: ANION GAP 8 (5-15); CALCIUM 8.2 mg/dL (8.4-11.0); CHLORIDE 104 mmol/L (98-107); CREATININE 0.91 mg/dL (0.55-1.30); GLUCOSE 209 mg/dL (70-99); POTASSIUM 3.9 mmol/L (3.5-5.1); SODIUM SERUM 139 mmol/L (136-145); UREA NITROGEN, BLOOD 26 mg/dL (8-21)
[2019-06-17 06:54] LABS: BASOPHILS % (AUTO) 0.1 % (0.0-2.0); EOSINOPHILS % (AUTO) 0.1 % (0.0-4.0); HEMATOCRIT 28.9 % (36-48); HEMOGLOBIN 9.3 g/dL (12.0-16.0); LYMPHOCYTES # (AUTO) 0.9 K/uL (1.0-5.5); LYMPHOCYTES % (AUTO) 8.4 % (20.5-51.5); MEAN CORPUSCULAR HEMOGLOBIN 28 pg (27-31); MEAN CORPUSCULAR HGB CONC 32 % (32-36); MEAN CORPUSCULAR VOLUME 86 fL (79.0-98.0); MONOCYTES # (AUTO) 0.6 K/uL (0.0-1.0); MONOCYTES % (AUTO) 5.7 % (1.7-9.3); NEUTROPHILS # (AUTO) 9.5 K/uL (1.8-7.7); NEUTROPHILS % (AUTO) 85.7 % (40.0-70.0); PLATELET COUNT (AUTO) 231 K/uL (130-430); RED BLOOD CELL COUNT(AUTO) 3.37 MIL/uL (4.2-6.2); RED CELL DISTRIBUTION WIDTH 17.5 % (9.0-15.0)
[2019-06-17 06:55] LABS: C-REACTIVE PROTEIN QUANT < 0.2 mg/dL (0-0.5)
[2019-06-17 08:00] VITALS: BP_SYST 175
[2019-06-17] MEDS: FAMOTIDINE PF 20 MG/2 ML VIAL IVP SCH ×2 (09:17→21:01)
[2019-06-17] MEDS: ASPIRIN 325 MG TABLET PO SCH (09:18)
[2019-06-17] MEDS: ATORVASTATIN 20 MG TABLET PO SCH (09:18)
[2019-06-17] MEDS: FUROSEMIDE 40 MG TABLET PO SCH (09:19)
[2019-06-17] MEDS: PREDNISONE 20 MG TABLET PO SCH ×2 (09:19→21:01)
[2019-06-17] MEDS: ENOXAPARIN SODIUM 40 MG/0.4 ML SYRINGE SUBCUT SCH (09:20)
[2019-06-17] MEDS: INSULIN GLARGINE 100 UNITS/ML 10 ML VIAL SUBCUT SCH (09:29)
[2019-06-17 10:46] LABS: ERYTHROCYTE SEDIMENTATION RATE 12 MM/HR (0-20)
[2019-06-17] MEDS ORDERED: FUROSEMIDE 20 MG/2 ML VIAL IVP ONE (11:30)
[2019-06-17 12:00] VITALS: BP_SYST 155
[2019-06-17] MEDS: VANCOMYCIN HCL 1,000 MG in NS 250 ML IV SCH (12:46)
[2019-06-17 16:43] VITALS: BP_SYST 137
[2019-06-17] MEDS ORDERED: POLYETHYLENE GLYCOL 3350, 17 GM/ POWD.PACK PO ONE (17:30)
[2019-06-17] MEDS ORDERED: POLYETHYLENE GLYCOL 3350, 17 GM/ POWD.PACK ONE (17:32)
[2019-06-17] MEDS: CEFEPIME 1 GM in D5W 50 ML IV SCH (17:40)
[2019-06-17 20:04] VITALS: BP_SYST 123
[2019-06-17] MEDS: PSYLLIUM HUSK 1 PKT PACKET PO SCH ×2 (21:00→21:01)
[2019-06-18 01:00] VITALS: BP_SYST 120
[2019-06-18] MEDS: IPRATROPIUM BROM 0.5 MG/2.5 ML VIAL.NEB (ATROVENT) INH SCH ×4 (01:24→19:22)
[2019-06-18] MEDS: ALBUTEROL SULFATE 0.083% 2.5 MG/3 ML VIAL.NEB INH SCH ×4 (01:25→19:22)
[2019-06-18] MEDS: MORPHINE 2 MG/ML INJ. SYRINGE IVP PRN (03:00)
[2019-06-18] MEDS: INSULIN LISPRO SLIDING SCALE 100 UNITS/ML VIAL (humaLOG) SUBCUT PRN ×4 (06:45→20:35)
[2019-06-18 08:00] VITALS: BP_SYST 133
[2019-06-18 08:11] LABS: BASOPHILS # (AUTO) 0.1 K/uL (0.0-0.2); BASOPHILS % (AUTO) 0.6 % (0.0-2.0); HEMATOCRIT 34.8 % (36-48); HEMOGLOBIN 11.2 g/dL (12.0-16.0); LYMPHOCYTES # (AUTO) 1.1 K/uL (1.0-5.5); LYMPHOCYTES % (AUTO) 7.7 % (20.5-51.5); MEAN CORPUSCULAR HEMOGLOBIN 28 pg (27-31); MEAN CORPUSCULAR HGB CONC 32 % (32-36); MEAN CORPUSCULAR VOLUME 86 fL (79.0-98.0); MONOCYTES # (AUTO) 0.7 K/uL (0.0-1.0); MONOCYTES % (AUTO) 4.7 % (1.7-9.3); NEUTROPHILS # (AUTO) 12.3 K/uL (1.8-7.7); PLATELET COUNT (AUTO) 289 K/uL (130-430); RED BLOOD CELL COUNT(AUTO) 4.05 MIL/uL (4.2-6.2); RED CELL DISTRIBUTION WIDTH 17.5 % (9.0-15.0); WHITE BLOOD COUNT (AUTO) 14.1 K/uL (4.8-10.8)
[2019-06-18 08:30] LABS: ALANINE AMINOTRANSFERASE 13 U/L (12-78); ALBUMIN 2.8 g/dL (3.4-4.8); ANION GAP 10 (5-15); ASPARTATE AMINOTRANSFERASE 14 U/L (10-37); CALCIUM 8.5 mg/dL (8.4-11.0); CHLORIDE 100 mmol/L (98-107); CREATININE 1.02 mg/dL (0.55-1.30); GLUCOSE 218 mg/dL (70-99); POTASSIUM 3.5 mmol/L (3.5-5.1); SODIUM SERUM 137 mmol/L (136-145); TOTAL BILIRUBIN 0.6 mg/dL (0.0-1.0); UREA NITROGEN, BLOOD 26 mg/dL (8-21)
[2019-06-18 08:37] LABS: C-REACTIVE PROTEIN QUANT < 0.2 mg/dL (0-0.5)
[2019-06-18] MEDS: PREDNISONE 20 MG TABLET PO SCH ×2 (09:11→20:30)
[2019-06-18] MEDS: FUROSEMIDE 40 MG TABLET PO SCH (09:11)
[2019-06-18] MEDS: ASPIRIN 325 MG TABLET PO SCH (09:12)
[2019-06-18] MEDS: ENOXAPARIN SODIUM 40 MG/0.4 ML SYRINGE SUBCUT SCH (09:13)
[2019-06-18] MEDS: FAMOTIDINE PF 20 MG/2 ML VIAL IVP SCH ×2 (09:13→20:30)
[2019-06-18] MEDS: ATORVASTATIN 20 MG TABLET PO SCH (09:14)
[2019-06-18] MEDS: PSYLLIUM HUSK 1 PKT PACKET PO SCH ×3 (09:14→20:31)
[2019-06-18] MEDS: MINERAL OIL 30 ML UDC PO SCH ×3 (09:15→22:00)
[2019-06-18] MEDS ORDERED: MAGNESIUM CITRATE 300 ML ORAL SOLUTION PO ONE (09:15)
[2019-06-18] MEDS: INSULIN GLARGINE 100 UNITS/ML 10 ML VIAL SUBCUT SCH (09:21)
[2019-06-18 10:01] LABS: ERYTHROCYTE SEDIMENTATION RATE 14 MM/HR (0-20)
[2019-06-18 12:28] VITALS: BP_SYST 130
[2019-06-18] MEDS ORDERED: VANCOMYCIN HCL 1,500 MG in NS 500 ML IV ONE (13:00)
[2019-06-18] MEDS: CEFEPIME 1 GM in D5W 50 ML IV SCH (13:08)
[2019-06-18] MEDS: FLUCONAZOLE 100 mg/ NS 50 ML IV SCH (13:15)
[2019-06-18] MEDS ORDERED: VANCOMYCIN HCL 1,500 MG in NS 250 ML IV ONE (13:30)
[2019-06-18] MEDS ORDERED: FUROSEMIDE 20 MG/2 ML VIAL IVP ONE (16:00)
[2019-06-18 16:53] VITALS: BP_SYST 126
[2019-06-18 17:00] VITALS: BP_SYST 126
[2019-06-18 20:09] VITALS: BP_SYST 137
[2019-06-19 00:42] VITALS: BP_SYST 116
[2019-06-19] MEDS: ALBUTEROL SULFATE 0.083% 2.5 MG/3 ML VIAL.NEB INH SCH ×4 (01:48→19:16)
[2019-06-19] MEDS: IPRATROPIUM BROM 0.5 MG/2.5 ML VIAL.NEB (ATROVENT) INH SCH ×4 (01:48→19:17)
[2019-06-19] MEDS: MINERAL OIL 30 ML UDC PO SCH ×3 (06:00→21:02)
[2019-06-19] MEDS: INSULIN LISPRO SLIDING SCALE 100 UNITS/ML VIAL (humaLOG) SUBCUT PRN ×4 (06:38→21:52)
[2019-06-19 06:55] LABS: BASOPHILS % (AUTO) 0.2 % (0.0-2.0); EOSINOPHILS % (AUTO) 0.1 % (0.0-4.0); HEMATOCRIT 29.7 % (36-48); HEMOGLOBIN 9.6 g/dL (12.0-16.0); LYMPHOCYTES # (AUTO) 0.9 K/uL (1.0-5.5); LYMPHOCYTES % (AUTO) 6.6 % (20.5-51.5); MEAN CORPUSCULAR HEMOGLOBIN 28 pg (27-31); MEAN CORPUSCULAR HGB CONC 32 % (32-36); MEAN CORPUSCULAR VOLUME 85 fL (79.0-98.0); MONOCYTES # (AUTO) 0.9 K/uL (0.0-1.0); NEUTROPHILS # (AUTO) 11.2 K/uL (1.8-7.7); NEUTROPHILS % (AUTO) 86.1 % (40.0-70.0); PLATELET COUNT (AUTO) 257 K/uL (130-430); RED BLOOD CELL COUNT(AUTO) 3.49 MIL/uL (4.2-6.2); RED CELL DISTRIBUTION WIDTH 17.8 % (9.0-15.0)
[2019-06-19 06:58] LABS: ANION GAP 9 (5-15); CALCIUM 8.4 mg/dL (8.4-11.0); CHLORIDE 97 mmol/L (98-107); CREATININE 0.93 mg/dL (0.55-1.30); GLUCOSE 205 mg/dL (70-99); POTASSIUM 3.6 mmol/L (3.5-5.1); SODIUM SERUM 135 mmol/L (136-145); UREA NITROGEN, BLOOD 30 mg/dL (8-21)
[2019-06-19 08:10] VITALS: BP_SYST 152
[2019-06-19] MEDS: PSYLLIUM HUSK 1 PKT PACKET PO SCH ×3 (09:00→21:00)
[2019-06-19] MEDS: ENOXAPARIN SODIUM 40 MG/0.4 ML SYRINGE SUBCUT SCH (09:20)
[2019-06-19] MEDS: PREDNISONE 20 MG TABLET PO SCH (09:22)
[2019-06-19] MEDS: ASPIRIN 81 MG TAB.CHEW PO SCH (09:22)
[2019-06-19] MEDS: ATORVASTATIN 20 MG TABLET PO SCH (09:23)
[2019-06-19] MEDS: FUROSEMIDE 40 MG TABLET PO SCH (09:24)
[2019-06-19] MEDS: INSULIN GLARGINE 100 UNITS/ML 10 ML VIAL SUBCUT SCH (09:25)
[2019-06-19] MEDS: FAMOTIDINE PF 20 MG/2 ML VIAL IVP SCH ×2 (09:26→21:02)
[2019-06-19 12:00] VITALS: BP_SYST 120
[2019-06-19] MEDS: FLUCONAZOLE 100 mg/ NS 50 ML IV SCH (13:23)
[2019-06-19] MEDS: CEFEPIME 1 GM in D5W 50 ML IV SCH (13:24)
[2019-06-19 16:40] VITALS: BP_SYST 120
[2019-06-19 20:00] VITALS: BP_SYST 105
[2019-06-19] MEDS ORDERED: VANCOMYCIN HCL 1,250 MG in NS 250 ML IV SCH (21:00)
[2019-06-19] MEDS: PREDNISONE 10 MG TABLET PO SCH (21:02)
[2019-06-19] MEDS: ACETAMINOPHEN 325 MG TABLET PO PRN (21:52)
[2019-06-20 00:27] VITALS: BP_SYST 93
[2019-06-20] MEDS: ALBUTEROL SULFATE 0.083% 2.5 MG/3 ML VIAL.NEB INH SCH ×4 (02:26→19:15)
[2019-06-20] MEDS: IPRATROPIUM BROM 0.5 MG/2.5 ML VIAL.NEB (ATROVENT) INH SCH ×4 (02:26→19:15)
[2019-06-20] MEDS: ACETAMINOPHEN 325 MG TABLET PO PRN ×2 (05:46→20:28)
[2019-06-20] MEDS: MINERAL OIL 30 ML UDC PO SCH ×3 (05:47→22:00)
[2019-06-20] MEDS: INSULIN LISPRO SLIDING SCALE 100 UNITS/ML VIAL (humaLOG) SUBCUT PRN ×4 (06:15→20:42)
[2019-06-20 07:20] LABS: BASOPHILS % (AUTO) 0.1 % (0.0-2.0); HEMATOCRIT 29.1 % (36-48); HEMOGLOBIN 9.4 g/dL (12.0-16.0); LYMPHOCYTES # (AUTO) 1.2 K/uL (1.0-5.5); LYMPHOCYTES % (AUTO) 8.6 % (20.5-51.5); MEAN CORPUSCULAR HEMOGLOBIN 28 pg (27-31); MEAN CORPUSCULAR HGB CONC 32 % (32-36); MEAN CORPUSCULAR VOLUME 86 fL (79.0-98.0); MONOCYTES % (AUTO) 7.3 % (1.7-9.3); NEUTROPHILS # (AUTO) 11.5 K/uL (1.8-7.7); PLATELET COUNT (AUTO) 268 K/uL (130-430); RED CELL DISTRIBUTION WIDTH 18.2 % (9.0-15.0); WHITE BLOOD COUNT (AUTO) 13.7 K/uL (4.8-10.8)
[2019-06-20 07:31] LABS: ANION GAP 8 (5-15); CALCIUM 8.2 mg/dL (8.4-11.0); CHLORIDE 98 mmol/L (98-107); CREATININE 0.94 mg/dL (0.55-1.30); GLUCOSE 259 mg/dL (70-99); POTASSIUM 3.5 mmol/L (3.5-5.1); SODIUM SERUM 135 mmol/L (136-145); UREA NITROGEN, BLOOD 34 mg/dL (8-21)
[2019-06-20 07:56] VITALS: BP_SYST 142
[2019-06-20] MEDS: ASPIRIN 81 MG TAB.CHEW PO SCH (08:47)
[2019-06-20] MEDS: PREDNISONE 10 MG TABLET PO SCH ×2 (08:47→20:28)
[2019-06-20] MEDS: ATORVASTATIN 20 MG TABLET PO SCH (08:48)
[2019-06-20] MEDS: FUROSEMIDE 40 MG TABLET PO SCH ×2 (08:48→20:29)
[2019-06-20] MEDS: PSYLLIUM HUSK 1 PKT PACKET PO SCH ×3 (08:48→20:29)
[2019-06-20] MEDS: INSULIN GLARGINE 100 UNITS/ML 10 ML VIAL SUBCUT SCH (08:50)
[2019-06-20] MEDS: ENOXAPARIN SODIUM 40 MG/0.4 ML SYRINGE SUBCUT SCH (08:55)
[2019-06-20] MEDS: FAMOTIDINE PF 20 MG/2 ML VIAL IVP SCH ×2 (08:56→20:29)
[2019-06-20 11:14] VITALS: BP_SYST 94
[2019-06-20] MEDS: CEFEPIME 1 GM in D5W 50 ML IV SCH (12:04)
[2019-06-20] MEDS: FLUCONAZOLE 100 mg/ NS 50 ML IV SCH (12:40)
[2019-06-20 15:01] VITALS: BP_SYST 112
[2019-06-20 20:00] VITALS: BP_SYST 120
[2019-06-21 00:28] VITALS: BP_SYST 117
[2019-06-21] MEDS: ALBUTEROL SULFATE 0.083% 2.5 MG/3 ML VIAL.NEB INH SCH ×4 (02:06→19:46)
[2019-06-21] MEDS: IPRATROPIUM BROM 0.5 MG/2.5 ML VIAL.NEB (ATROVENT) INH SCH ×4 (02:06→19:46)
[2019-06-21] MEDS: MINERAL OIL 30 ML UDC PO SCH ×3 (06:00→21:18)
[2019-06-21] MEDS: INSULIN LISPRO SLIDING SCALE 100 UNITS/ML VIAL (humaLOG) SUBCUT PRN ×4 (06:06→21:03)
[2019-06-21] MEDS: ACETAMINOPHEN 325 MG TABLET PO PRN ×2 (06:11→22:44)
[2019-06-21 07:18] VITALS: BP_SYST 124
[2019-06-21 08:12] VITALS: BP_SYST 124
[2019-06-21 08:22] LABS: BASOPHILS # (AUTO) 0.1 K/uL (0.0-0.2); BASOPHILS % (AUTO) 0.6 % (0.0-2.0); EOSINOPHILS % (AUTO) 0.1 % (0.0-4.0); HEMATOCRIT 31.4 % (36-48); HEMOGLOBIN 9.9 g/dL (12.0-16.0); LYMPHOCYTES # (AUTO) 2.4 K/uL (1.0-5.5); LYMPHOCYTES % (AUTO) 13.2 % (20.5-51.5); MEAN CORPUSCULAR HEMOGLOBIN 27 pg (27-31); MEAN CORPUSCULAR HGB CONC 32 % (32-36); MEAN CORPUSCULAR VOLUME 87 fL (79.0-98.0); MONOCYTES % (AUTO) 10.8 % (1.7-9.3); NEUTROPHILS # (AUTO) 13.9 K/uL (1.8-7.7); PLATELET COUNT (AUTO) 288 K/uL (130-430); WHITE BLOOD COUNT (AUTO) 18.4 K/uL (4.8-10.8)
[2019-06-21 08:39] LABS: ANION GAP 5 (5-15); CALCIUM 8.2 mg/dL (8.4-11.0); CHLORIDE 100 mmol/L (98-107); CREATININE 0.94 mg/dL (0.55-1.30); GLUCOSE 132 mg/dL (70-99); POTASSIUM 4.2 mmol/L (3.5-5.1); SODIUM SERUM 136 mmol/L (136-145); UREA NITROGEN, BLOOD 37 mg/dL (8-21)
[2019-06-21] MEDS: ASPIRIN 81 MG TAB.CHEW PO SCH (08:45)
[2019-06-21] MEDS: PREDNISONE 10 MG TABLET PO SCH (08:45)
[2019-06-21] MEDS: FUROSEMIDE 40 MG TABLET PO SCH ×2 (08:45→21:08)
[2019-06-21] MEDS: FAMOTIDINE PF 20 MG/2 ML VIAL IVP SCH ×2 (08:45→20:58)
[2019-06-21] MEDS: ATORVASTATIN 20 MG TABLET PO SCH (08:45)
[2019-06-21] MEDS: ENOXAPARIN SODIUM 40 MG/0.4 ML SYRINGE SUBCUT SCH (08:46)
[2019-06-21] MEDS: INSULIN GLARGINE 100 UNITS/ML 10 ML VIAL SUBCUT SCH (08:47)
[2019-06-21] MEDS: PSYLLIUM HUSK 1 PKT PACKET PO SCH ×3 (08:49→21:00)
[2019-06-21 12:16] VITALS: BP_SYST 114
[2019-06-21] MEDS: FLUCONAZOLE 100 mg/ NS 50 ML IV SCH (12:40)
[2019-06-21] MEDS: CEFEPIME 1 GM in D5W 50 ML IV SCH (13:44)
[2019-06-21 14:21] LABS: NEUTROPHILS % (AUTO) 75.3 % (40.0-70.0)
[2019-06-21 16:15] VITALS: BP_SYST 104
[2019-06-21 20:05] VITALS: BP_SYST 125
[2019-06-21] MEDS: LACTOBACILLUS RHAMNOSUS GG 1 CAP CAPSULE PO SCH (20:58)
[2019-06-22] MEDS: ALBUTEROL SULFATE 0.083% 2.5 MG/3 ML VIAL.NEB INH SCH ×4 (01:05→19:35)
[2019-06-22] MEDS: IPRATROPIUM BROM 0.5 MG/2.5 ML VIAL.NEB (ATROVENT) INH SCH ×4 (01:05→19:35)
[2019-06-22 02:21] VITALS: BP_SYST 128
[2019-06-22] MEDS: MINERAL OIL 30 ML UDC PO SCH ×3 (06:00→21:22)
[2019-06-22] MEDS: INSULIN LISPRO SLIDING SCALE 100 UNITS/ML VIAL (humaLOG) SUBCUT PRN ×4 (06:18→21:22)
[2019-06-22 07:51] VITALS: BP_SYST 156
[2019-06-22] MEDS: PSYLLIUM HUSK 1 PKT PACKET PO SCH ×3 (08:16→21:00)
[2019-06-22] MEDS: ASPIRIN 81 MG TAB.CHEW PO SCH (08:23)
[2019-06-22] MEDS: PREDNISONE 10 MG TABLET PO SCH (08:24)
[2019-06-22] MEDS: LACTOBACILLUS RHAMNOSUS GG 1 CAP CAPSULE PO SCH ×2 (08:24→21:19)
[2019-06-22] MEDS: FAMOTIDINE PF 20 MG/2 ML VIAL IVP SCH ×2 (08:24→21:21)
[2019-06-22] MEDS: FUROSEMIDE 40 MG TABLET PO SCH ×2 (08:24→21:20)
[2019-06-22] MEDS: ATORVASTATIN 20 MG TABLET PO SCH (08:24)
[2019-06-22] MEDS: INSULIN GLARGINE 100 UNITS/ML 10 ML VIAL SUBCUT SCH (08:31)
[2019-06-22] MEDS: ENOXAPARIN SODIUM 40 MG/0.4 ML SYRINGE SUBCUT SCH (08:32)
[2019-06-22 12:15] VITALS: BP_SYST 133
[2019-06-22] MEDS: CEFEPIME 1 GM in D5W 50 ML IV SCH (12:35)
[2019-06-22] MEDS: FLUCONAZOLE 100 mg/ NS 50 ML IV SCH (13:01)
[2019-06-22] MEDS: metroNIDAZOLE 500 MG TABLET PO SCH ×2 (14:35→21:20)
[2019-06-22 15:54] VITALS: BP_SYST 120
[2019-06-22 20:00] VITALS: BP_SYST 101
[2019-06-22] MEDS: ACETAMINOPHEN 325 MG TABLET PO PRN (21:20)
[2019-06-23 00:25] VITALS: BP_SYST 128
[2019-06-23] MEDS: ALBUTEROL SULFATE 0.083% 2.5 MG/3 ML VIAL.NEB INH SCH ×4 (01:00→19:51)
[2019-06-23] MEDS: IPRATROPIUM BROM 0.5 MG/2.5 ML VIAL.NEB (ATROVENT) INH SCH ×4 (01:00→19:51)
[2019-06-23] MEDS: ACETAMINOPHEN 325 MG TABLET PO PRN ×2 (04:36→18:42)
[2019-06-23] MEDS: MINERAL OIL 30 ML UDC PO SCH ×3 (06:00→21:08)
[2019-06-23] MEDS: metroNIDAZOLE 500 MG TABLET PO SCH ×3 (06:11→21:12)
[2019-06-23] MEDS: INSULIN LISPRO SLIDING SCALE 100 UNITS/ML VIAL (humaLOG) SUBCUT PRN ×4 (06:11→21:17)
[2019-06-23 07:15] LABS: ALANINE AMINOTRANSFERASE 33 U/L (12-78); ALBUMIN 2.8 g/dL (3.4-4.8); ANION GAP 3 (5-15); ASPARTATE AMINOTRANSFERASE 24 U/L (10-37); CALCIUM 8.1 mg/dL (8.4-11.0); CHLORIDE 103 mmol/L (98-107); CREATININE 0.88 mg/dL (0.55-1.30); GLUCOSE 166 mg/dL (70-99); POTASSIUM 4.9 mmol/L (3.5-5.1); SODIUM SERUM 140 mmol/L (136-145); TOTAL BILIRUBIN 0.4 mg/dL (0.0-1.0); UREA NITROGEN, BLOOD 33 mg/dL (8-21)
[2019-06-23 07:21] LABS: BASOPHILS % (AUTO) 0.1 % (0.0-2.0); EOSINOPHILS # (AUTO) 0.3 K/uL (0.0-0.4); EOSINOPHILS % (AUTO) 2.3 % (0.0-4.0); HEMATOCRIT 29.9 % (36-48); HEMOGLOBIN 9.6 g/dL (12.0-16.0); LYMPHOCYTES # (AUTO) 1.7 K/uL (1.0-5.5); LYMPHOCYTES % (AUTO) 14.2 % (20.5-51.5); MEAN CORPUSCULAR HEMOGLOBIN 28 pg (27-31); MEAN CORPUSCULAR HGB CONC 32 % (32-36); MEAN CORPUSCULAR VOLUME 87 fL (79.0-98.0); MONOCYTES # (AUTO) 1.7 K/uL (0.0-1.0); MONOCYTES % (AUTO) 13.9 % (1.7-9.3); NEUTROPHILS # (AUTO) 8.3 K/uL (1.8-7.7); NEUTROPHILS % (AUTO) 69.5 % (40.0-70.0); PLATELET COUNT (AUTO) 265 K/uL (130-430); RED BLOOD CELL COUNT(AUTO) 3.42 MIL/uL (4.2-6.2); RED CELL DISTRIBUTION WIDTH 18.8 % (9.0-15.0)
[2019-06-23 07:59] VITALS: BP_SYST 154
[2019-06-23] MEDS: ATORVASTATIN 20 MG TABLET PO SCH (08:18)
[2019-06-23] MEDS: ASPIRIN 81 MG TAB.CHEW PO SCH (08:18)
[2019-06-23] MEDS: FUROSEMIDE 40 MG TABLET PO SCH ×2 (08:18→21:10)
[2019-06-23] MEDS: FAMOTIDINE PF 20 MG/2 ML VIAL IVP SCH (08:19)
[2019-06-23] MEDS: LACTOBACILLUS RHAMNOSUS GG 1 CAP CAPSULE PO SCH ×2 (08:19→21:09)
[2019-06-23] MEDS: PREDNISONE 10 MG TABLET PO SCH (08:19)
[2019-06-23] MEDS: ENOXAPARIN SODIUM 40 MG/0.4 ML SYRINGE SUBCUT SCH (08:23)
[2019-06-23] MEDS: PSYLLIUM HUSK 1 PKT PACKET PO SCH ×3 (08:24→21:00)
[2019-06-23] MEDS: INSULIN GLARGINE 100 UNITS/ML 10 ML VIAL SUBCUT SCH (08:35)
[2019-06-23 11:11] VITALS: BP_SYST 113
[2019-06-23] MEDS: CEFEPIME 1 GM in D5W 50 ML IV SCH (12:51)
[2019-06-23] MEDS: FLUCONAZOLE 100 mg/ NS 50 ML IV SCH (13:52)
[2019-06-23 15:19] VITALS: BP_SYST 134
[2019-06-23 19:20] VITALS: BP_SYST 123
[2019-06-23] MEDS: FAMOTIDINE 20 MG TABLET PO SCH (21:11)
[2019-06-23] MEDS ORDERED: ZOLPIDEM TARTRATE 5 MG TABLET PO ONE (23:30)
[2019-06-24] VITALS (7 sets, daily range): BP systolic 104–163
[2019-06-24] MEDS: ALBUTEROL SULFATE 0.083% 2.5 MG/3 ML VIAL.NEB INH SCH ×4 (01:00→19:11)
[2019-06-24] MEDS: IPRATROPIUM BROM 0.5 MG/2.5 ML VIAL.NEB (ATROVENT) INH SCH ×4 (01:00→19:11)
[2019-06-24] MEDS: metroNIDAZOLE 500 MG TABLET PO SCH ×3 (05:59→21:23)
[2019-06-24] MEDS: MINERAL OIL 30 ML UDC PO SCH ×4 (05:59→21:32)
[2019-06-24] MEDS: INSULIN LISPRO SLIDING SCALE 100 UNITS/ML VIAL (humaLOG) SUBCUT PRN ×4 (06:04→21:25)
[2019-06-24 06:58] LABS: BASOPHILS % (AUTO) 0.1 % (0.0-2.0); EOSINOPHILS # (AUTO) 0.2 K/uL (0.0-0.4); EOSINOPHILS % (AUTO) 1.9 % (0.0-4.0); HEMATOCRIT 29.6 % (36-48); HEMOGLOBIN 9.6 g/dL (12.0-16.0); LYMPHOCYTES # (AUTO) 2.4 K/uL (1.0-5.5); LYMPHOCYTES % (AUTO) 20.4 % (20.5-51.5); MEAN CORPUSCULAR HEMOGLOBIN 28 pg (27-31); MEAN CORPUSCULAR HGB CONC 32 % (32-36); MEAN CORPUSCULAR VOLUME 88 fL (79.0-98.0); MONOCYTES # (AUTO) 1.5 K/uL (0.0-1.0); MONOCYTES % (AUTO) 12.6 % (1.7-9.3); NEUTROPHILS # (AUTO) 7.7 K/uL (1.8-7.7); PLATELET COUNT (AUTO) 246 K/uL (130-430); RED BLOOD CELL COUNT(AUTO) 3.38 MIL/uL (4.2-6.2); WHITE BLOOD COUNT (AUTO) 11.8 K/uL (4.8-10.8)
[2019-06-24 07:33] LABS: ALANINE AMINOTRANSFERASE 39 U/L (12-78); ALBUMIN 2.9 g/dL (3.4-4.8); ANION GAP 4 (5-15); ASPARTATE AMINOTRANSFERASE 31 U/L (10-37); CALCIUM 8.4 mg/dL (8.4-11.0); CHLORIDE 96 mmol/L (98-107); GLUCOSE 173 mg/dL (70-99); POTASSIUM 4.9 mmol/L (3.5-5.1); SODIUM SERUM 132 mmol/L (136-145); TOTAL BILIRUBIN 0.5 mg/dL (0.0-1.0); UREA NITROGEN, BLOOD 35 mg/dL (8-21)
[2019-06-24] MEDS: PSYLLIUM HUSK 1 PKT PACKET PO SCH ×4 (09:00→21:22)
[2019-06-24] MEDS: FAMOTIDINE 20 MG TABLET PO SCH ×2 (10:14→21:23)
[2019-06-24] MEDS: ASPIRIN 81 MG TAB.CHEW PO SCH (10:15)
[2019-06-24] MEDS: LACTOBACILLUS RHAMNOSUS GG 1 CAP CAPSULE PO SCH ×2 (10:15→21:22)
[2019-06-24] MEDS: FUROSEMIDE 40 MG TABLET PO SCH ×2 (10:15→21:22)
[2019-06-24] MEDS: ATORVASTATIN 20 MG TABLET PO SCH (10:15)
[2019-06-24] MEDS: PREDNISONE 10 MG TABLET PO SCH (10:15)
[2019-06-24] MEDS: ENOXAPARIN SODIUM 40 MG/0.4 ML SYRINGE SUBCUT SCH (10:16)
[2019-06-24] MEDS: INSULIN GLARGINE 100 UNITS/ML 10 ML VIAL SUBCUT SCH (10:17)
[2019-06-24] MEDS: ACETAMINOPHEN 325 MG TABLET PO PRN (11:59)
[2019-06-24] MEDS: FLUCONAZOLE 100 mg/ NS 50 ML IV SCH (13:44)
[2019-06-24] MEDS: ZOLPIDEM TARTRATE 5 MG TABLET PO PRN (22:23)
[2019-06-25 00:48] VITALS: BP_SYST 136
[2019-06-25] MEDS: IPRATROPIUM BROM 0.5 MG/2.5 ML VIAL.NEB (ATROVENT) INH SCH ×4 (01:35→19:42)
[2019-06-25] MEDS: ALBUTEROL SULFATE 0.083% 2.5 MG/3 ML VIAL.NEB INH SCH ×4 (01:35→19:42)
[2019-06-25] MEDS: metroNIDAZOLE 500 MG TABLET PO SCH ×3 (05:45→22:35)
[2019-06-25] MEDS: MINERAL OIL 30 ML UDC PO SCH ×3 (05:45→22:36)
[2019-06-25] MEDS: INSULIN LISPRO SLIDING SCALE 100 UNITS/ML VIAL (humaLOG) SUBCUT PRN ×4 (05:50→22:41)
[2019-06-25 06:56] LABS: ANION GAP 7 (5-15); CALCIUM 8.3 mg/dL (8.4-11.0); CHLORIDE 96 mmol/L (98-107); CREATININE 1.28 mg/dL (0.55-1.30); GLUCOSE 200 mg/dL (70-99); POTASSIUM 3.6 mmol/L (3.5-5.1); SODIUM SERUM 134 mmol/L (136-145); UREA NITROGEN, BLOOD 42 mg/dL (8-21)
[2019-06-25 08:08] VITALS: BP_SYST 124
[2019-06-25] MEDS: ATORVASTATIN 20 MG TABLET PO SCH (08:26)
[2019-06-25] MEDS: PSYLLIUM HUSK 1 PKT PACKET PO SCH ×3 (08:26→22:37)
[2019-06-25] MEDS: LACTOBACILLUS RHAMNOSUS GG 1 CAP CAPSULE PO SCH ×2 (08:26→22:35)
[2019-06-25] MEDS: FAMOTIDINE 20 MG TABLET PO SCH ×2 (08:27→22:35)
[2019-06-25] MEDS: ASPIRIN 81 MG TAB.CHEW PO SCH (08:27)
[2019-06-25] MEDS: INSULIN GLARGINE 100 UNITS/ML 10 ML VIAL SUBCUT SCH (08:30)
[2019-06-25] MEDS: ENOXAPARIN SODIUM 40 MG/0.4 ML SYRINGE SUBCUT SCH (08:30)
[2019-06-25] MEDS: FUROSEMIDE 40 MG TABLET PO SCH (11:51)
[2019-06-25 12:19] VITALS: BP_SYST 130
[2019-06-25 15:36] VITALS: BP_SYST 115
[2019-06-25] MEDS: ACETAMINOPHEN 325 MG TABLET PO PRN (15:46)
[2019-06-25 20:00] VITALS: BP_SYST 139
[2019-06-25] MEDS: ZOLPIDEM TARTRATE 5 MG TABLET PO PRN (22:35)
[2019-06-26 00:53] VITALS: BP_SYST 141
[2019-06-26] MEDS: ALBUTEROL SULFATE 0.083% 2.5 MG/3 ML VIAL.NEB INH SCH ×3 (01:00→13:51)
[2019-06-26] MEDS: IPRATROPIUM BROM 0.5 MG/2.5 ML VIAL.NEB (ATROVENT) INH SCH ×3 (01:00→13:52)
[2019-06-26] MEDS: MINERAL OIL 30 ML UDC PO SCH ×2 (06:00→14:00)
[2019-06-26] MEDS: metroNIDAZOLE 500 MG TABLET PO SCH ×2 (06:04→14:09)
[2019-06-26] MEDS: INSULIN LISPRO SLIDING SCALE 100 UNITS/ML VIAL (humaLOG) SUBCUT PRN ×2 (06:09→11:14)
[2019-06-26 07:49] VITALS: BP_SYST 138
[2019-06-26] MEDS: LACTOBACILLUS RHAMNOSUS GG 1 CAP CAPSULE PO SCH (07:55)
[2019-06-26] MEDS: FUROSEMIDE 40 MG TABLET PO SCH (07:55)
[2019-06-26] MEDS: ENOXAPARIN SODIUM 40 MG/0.4 ML SYRINGE SUBCUT SCH (07:55)
[2019-06-26] MEDS: PSYLLIUM HUSK 1 PKT PACKET PO SCH ×2 (07:56→14:09)
[2019-06-26] MEDS: ATORVASTATIN 20 MG TABLET PO SCH (07:56)
[2019-06-26] MEDS: ASPIRIN 81 MG TAB.CHEW PO SCH (07:56)
[2019-06-26] MEDS: FAMOTIDINE 20 MG TABLET PO SCH (07:56)
[2019-06-26] MEDS: INSULIN GLARGINE 100 UNITS/ML 10 ML VIAL SUBCUT SCH (07:58)
[2019-06-26 11:17] VITALS: BP_SYST 120
[2019-06-26 13:12] VITALS: BP_SYST 95
[2019-06-26 14:47] VITALS: BP_SYST 95
[2019-06-26 16:00] VITALS: BP_SYST 91
== END 2019-06-26 16:52 | DRG 871 ==
LOC: SED 22:48 → SIC 06-09 07:48 → STU 06-14 13:07 → SMU 06-20 11:36
PROVIDERS: ADMIT Internal Medicine Hospice and Palliative Medicine; ATTEND Internal Medicine Hospice and Palliative Medicine
PROC: 0BH17EZ Insertion of Endotracheal Airway into Trachea, Via Natural or Artificial Opening (ICD-10-PCS; principal; 2019-06-09)
PROC: 5A1945Z Respiratory Ventilation, 24-96 Consecutive Hours (ICD-10-PCS; 2019-06-09)
PROC: 0BH17EZ Insertion of Endotracheal Airway into Trachea, Via Natural or Artificial Opening (ICD-10-PCS; 2019-06-10)
PROC: 5A1945Z Respiratory Ventilation, 24-96 Consecutive Hours (ICD-10-PCS; 2019-06-10)
DX: A41.9 Sepsis, unspecified organism (principal); I50.31 Acute diastolic (congestive) heart failure; J96.01 Acute respiratory failure with hypoxia; J15.6 Pneumonia due to other Gram-negative bacteria; J44.0 Chronic obstructive pulmonary disease with (acute) lower respiratory infection; Z99.11 Dependence on respirator [ventilator] status; J44.1 Chronic obstructive pulmonary disease with (acute) exacerbation; J91.8 Pleural effusion in other conditions classified elsewhere; D64.9 Anemia, unspecified; E11.65 Type 2 diabetes mellitus with hyperglycemia; E66.9 Obesity, unspecified; E78.5 Hyperlipidemia, unspecified; E83.52 Hypercalcemia; I11.0 Hypertensive heart disease with heart failure; M81.0 Age-related osteoporosis without current pathological fracture; Y95 Nosocomial condition; Z87.891 Personal history of nicotine dependence; Z88.0 Allergy status to penicillin; Z87.81 Personal history of (healed) traumatic fracture; Z88.6 Allergy status to analgesic agent; Z88.8 Allergy status to other drugs, medicaments and biological substances; Z79.899 Other long term (current) drug therapy; Z68.23 Body mass index [BMI] 23.0-23.9, adult
CPT/HCPCS: 36415; 36600; 70450-TC; 71045; 71250-TC; 73000-TC; 73060-TC; 80048; 80053; 80202-TC; 82550-TC; 82803-TC; 82962; 83605; 83880; 84484; 85025; 85379; 85610-TC; 85651-TC; 86140; 87040-TC; 87070-TC; 87081; 87205-TC; 93005; 93970; 94003; 94010; 94640; 94760; 96365; 96367; 96368; 97110-GP; 97112-GP; 97530-GP; 99285; G0378; J0330; J0692; J1265; J1450; J1650; J1815; J1940; J1956; J2060; J2250; J2270; J2405; J2704; J2930; J3370; J3490; J7030; J7040; J7050; J7060; J7512; J7613